=== PATIENT | male | born 1995 | race Caucasian/White ===

== ENCOUNTER 2022-03-14 18:14 | Emergency (ER) | payer OTHER ==
[2022-03-14 18:19] VITALS: TEMP 98.5
[2022-03-14] MEDS ORDERED: ONDANSETRON 4 MG/2 ML VIAL IVP STA (19:57)
[2022-03-14] MEDS ORDERED: SODIUM CHLORIDE 0.9% 1,000 ML IV STA (19:57)
--- NOTE | 2022-03-14 20:07 | ED ---
Nausea/Vomiting/Diarrhea HPI - General Chief complaint: Nausea/Vomiting/Diarrhea Stated complaint: NVD Time Seen by Provider: 03/14/22 20:00 Source: patient, family, RN notes reviewed, old records reviewed Mode of arrival: ambulatory Limitations: no limitations - History of Present Illness Initial comments: Well-appearing 26-year-old male, alert and oriented 4, presents ambulatory with complaints of nausea, vomiting, and diarrhea that started today. Patient states yesterday he felt fine. Every time he tries to eat or drink anything today he vomits. He denies any abdominal pain. He states he does have chills but no fevers. He is an insulin-dependent diabetic but mom is at bedside states that he is not compliant. She states she has been checking his sugars and home and they have been normal. He denies any sore throat, cough, difficulty breathing or chest pain. MD complaint: nausea, vomiting, diarrhea -: days(s) (1) Description of Vomiting: food contents, watery Description of Diarrhea: water (brown) Associated Abdominal Pain: No Severity scale (1-10): 0 Consistency: intermittent Worsens with: eating Associated Symptoms: fever/chills (no fever, just chills), nausea/vomiting, other (diarrhea) - Related Data Home Medications Medication Instructions Recorded Confirmed Divalproex ER [Depakote ER] 1,000 mg PO HS@199903/14/22 03/14/22 Divalproex ER [Depakote ER] 250 mg PO DAILY@0800 03/14/22 03/14/22 Insulin Glargine,Hum.rec.anlog 25 unit SQ HS@209903/14/22 03/14/22 [Lantus Solostar Pen] Insulin Lispro [humaLOG Kwikpen] See Protocol SQ AC-TID 03/14/22 03/14/22 OLANZapine 10 mg PO BID@0800,199903/14/22 03/14/22 Omeprazole 40 mg PO DAILY@0800 03/14/22 03/14/22 calcium polycarbophiL [Fibercon] 625 mg PO BID@0800,199903/14/22 03/14/22 cloNIDine HCL [Catapres] 0.2 mg PO HS@199903/14/22 03/14/22 traZODone HCL [Desyrel] 50 - 100 mg PO HS PRN 03/14/22 03/14/22 Allergies Allergy/AdvReac Type Severity Reaction Status Date / Time amoxicillin Allergy Anaphylaxis Verified 03/14/22 21:26 Penicillins Allergy Anaphylaxis Verified 03/14/22 21:26 risperidone [From Risperdal] Allergy Anaphylaxis Verified 03/14/22 21:26 Sulfa (Sulfonamide Allergy Anaphylaxis Verified 03/14/22 21:26 Antibiotics) Review of Systems ROS Statement: Those systems with pertinent positive or pertinent negative responses have been documented in the HPI. ROS Other: All systems not noted in ROS Statement are negative. Past Medical History Past Medical History: Diabetes Mellitus History of Any Multi-Drug Resistant Organisms: None Reported Past Surgical History: No Surgical Hx Reported Past Psychological History: ADD/ADHD, Bipolar Smoking Status: Vaper Past Alcohol Use History: None Reported Past Drug Use History: Marijuana General Exam Limitations: no limitations General appearance: alert, in no apparent distress Head exam: Present: atraumatic Eye exam: Present: normal appearance. Absent: scleral icterus, conjunctival injection ENT exam: Present: normal exam, normal oropharynx, mucous membranes moist Neck exam: Present: normal inspection, full ROM. Absent: tenderness, meningismus, lymphadenopathy Respiratory exam: Present: normal lung sounds bilaterally. Absent: respiratory distress, accessory muscle use Cardiovascular Exam: Present: tachycardia. Absent: JVD GI/Abdominal exam: Present: soft. Absent: distended, tenderness Extremities exam: Present: normal capillary refill. Absent: pedal edema Back exam: Present: normal inspection, full ROM, other (tattoo right shoulder). Absent: tenderness, CVA tenderness (R), CVA tenderness (L), rash noted Neurological exam: Present: alert, oriented X3, normal gait Psychiatric exam: Present: normal affect, normal mood Skin exam: Present: warm, dry, normal color. Absent: cyanosis, diaphoretic, petechiae, pallor Course Vital Signs 03/14/22 03/14/22 18:15 22:39 Temperature 98.5 F Pulse Rate 125 H 112 H Respiratory 22 18 Rate Blood Pressure 123/84 114/71 O2 Sat by Pulse 99 99 Oximetry - Reevaluation(s) Reevaluation #1: Patient states that he is feeling much better. He is tolerating oral fluids. 03/14/22 21:41 Time: 21:41 Medical Decision Making - Medical Decision Making Patient presents with 1 day of nausea, vomiting and diarrhea. He denies any hematochezia or hematemesis. Influenza and coronavirus is negative. X-ray shows a nonacute abdomen with no sign of intestinal structure pneumoperitoneum. Blood sugar was 276 patient was given a liter of normal saline. Urinalysis shows 4+ ketones and 4+ glucose. No anion gap. Patient was given 1 L normal saline with Zofran. He states he is feeling much better and is tolerating oral fluids. Abdomen is soft and nontender. Vital signs are stable. Patient has been afebrile. This is likely gastroenteritis. Case discussed with Dr. Dawson, he'll be discharged home to follow up with his primary care doctor next week and return to the emergency room with any new or concerning symptoms. Patient and family member are agreeable to this plan of care. - Lab Data Result diagrams: 03/14/22 20:39 03/14/22 20:39 Lab Results 03/14/22 03/14/22 03/14/22 Range/Units 20:39 20:39 20:39 WBC 14.0 H (3.8-10.6) k/uL RBC 6.01 H (4.30-5.90) m/uL Hgb 19.2 H* (13.0-17.5) gm/dL Hct 54.7 H (39.0-53.0) % MCV 90.9 (80.0-100.0) fL MCH 32.0 (25.0-35.0) pg MCHC 35.2 (31.0-37.0) g/dL RDW 13.2 (11.5-15.5) % Plt Count 170 (150-450) k/uL MPV 9.7 Neutrophils % (Manual) 82 % Band Neuts % (Manual) 11 % Lymphocytes % (Manual) 2 % Monocytes % (Manual) 5 % Neutrophils # (Manual) 13.00 H (1.3-7.7) k/uL Lymphocytes # (Manual) 0.28 L (1.0-4.8) k/uL Monocytes # (Manual) 0.70 (0-1.0) k/uL Nucleated RBCs 0 (0-0) /100 WBC Manual Slide Review Performed Sodium (137-145) mmol/L Potassium (3.5-5.1) mmol/L Chloride (98-107) mmol/L Carbon Dioxide (22-30) mmol/L Anion Gap mmol/L BUN (9-20) mg/dL Creatinine (0.66-1.25) mg/dL Est GFR (CKD-EPI)AfAm (>60 ml/min/1.73 sqM) Est GFR (CKD-EPI)NonAf (>60 ml/min/1.73 sqM) Glucose (74-99) mg/dL POC Glucose (mg/dL) (75-99) mg/dL POC Glu Property Accountant ID Calcium (8.4-10.2) mg/dL Total Bilirubin (0.2-1.3) mg/dL AST (17-59) U/L ALT (4-49) U/L Alkaline Phosphatase (38-126) U/L Total Protein (6.3-8.2) g/dL Albumin (3.5-5.0) g/dL Amylase (30-110) U/L Lipase (23-300) U/L Urine Color Yellow Urine Appearance Clear (Clear) Urine pH 5.5 (5.0-8.0) Ur Specific [place] 1.028 (1.001-1.035) Urine Protein Negative (Negative) Urine Glucose (UA) 4+ H (Negative) Urine Ketones 4+ H (Negative) Urine Blood Negative (Negative) Urine Nitrite Negative (Negative) Urine Bilirubin Negative (Negative) Urine Urobilinogen <2.0 (<2.0) mg/dL Ur Leukocyte Esterase Negative (Negative) Influenza Type A (PCR) Not Detected (Not Detectd) Influenza Type B (PCR) Not Detected (Not Detectd) RSV (PCR) Not Detected (Not Detectd) SARS-CoV-2 (PCR) Not Detected (Not Detectd) 03/14/22 03/14/22 Range/Units 20:39 22:39 WBC (3.8-10.6) k/uL RBC (4.30-5.90) m/uL Hgb (13.0-17.5) gm/dL Hct (39.0-53.0) % MCV (80.0-100.0) fL MCH (25.0-35.0) pg MCHC (31.0-37.0) g/dL RDW (11.5-15.5) % Plt Count (150-450) k/uL MPV Neutrophils % (Manual) % Band Neuts % (Manual) % Lymphocytes % (Manual) % Monocytes % (Manual) % Neutrophils # (Manual) (1.3-7.7) k/uL Lymphocytes # (Manual) (1.0-4.8) k/uL Monocytes # (Manual) (0-1.0) k/uL Nucleated RBCs (0-0) /100 WBC Manual Slide Review Sodium 140 (137-145) mmol/L Potassium 4.6 (3.5-5.1) mmol/L Chloride 101 (98-107) mmol/L Carbon Dioxide 26 (22-30) mmol/L Anion Gap 13 mmol/L BUN 20 (9-20) mg/dL Creatinine 0.54 L (0.66-1.25) mg/dL Est GFR (CKD-EPI)AfAm >90 (>60 ml/min/1.73 sqM) Est GFR (CKD-EPI)NonAf >90 (>60 ml/min/1.73 sqM) Glucose 276 H (74-99) mg/dL POC Glucose (mg/dL) 231 H (75-99) mg/dL POC Glu Property Accountant ID Smitha Medina Calcium 9.1 (8.4-10.2) mg/dL Total Bilirubin 1.2 (0.2-1.3) mg/dL AST 27 (17-59) U/L ALT 21 (4-49) U/L Alkaline Phosphatase 71 (38-126) U/L Total Protein 6.8 (6.3-8.2) g/dL Albumin 4.1 (3.5-5.0) g/dL Amylase 45 (30-110) U/L Lipase 28 (23-300) U/L Urine Color Urine Appearance (Clear) Urine pH (5.0-8.0) Ur Specific [place] (1.001-1.035) Urine Protein (Negative) Urine Glucose (UA) (Negative) Urine Ketones (Negative) Urine Blood (Negative) Urine Nitrite (Negative) Urine Bilirubin (Negative) Urine Urobilinogen (<2.0) mg/dL Ur Leukocyte Esterase (Negative) Influenza Type A (PCR) (Not Detectd) Influenza Type B (PCR) (Not Detectd) RSV (PCR) (Not Detectd) SARS-CoV-2 (PCR) (Not Detectd) Disposition Clinical Impression: Nausea & vomiting, Hyperglycemia Disposition: HOME SELF-CARE Condition: Good Instructions (If sedation given, give patient instructions): Acute Nausea and Vomiting (ED), Acute Diarrhea (ED) Additional Instructions: Follow-up with your primary care doctor next week. Return to emergency with any new or concerning symptoms including abdominal pain, fevers or nausea and vomiting. Is patient prescribed a controlled substance at d/c from ED?: No Referrals: Nonstaff,Physician [Primary Care Provider] - 1-2 days Time of Disposition: 21:51
[2022-03-14 20:49] LABS: Appearance,Urine Clear (Clear); Bilirubin,Urine Negative (Negative); Blood,Urine Negative (Negative); Color,Urine Yellow; Glucose,Urine (UA) 4+ (Negative); Leukocyte Esterase,Urine Negative (Negative); Nitrite,Urine Negative (Negative); PH, Urine 5.5 (5.0-8.0); Protein,Urine Negative (Negative); Specific Gravity,Urine 1.028 (1.001-1.035); Urobilinogen,Urine <2.0 mg/dL (<2.0)
[2022-03-14 20:55] LABS: Ketones,Urine 4+ (Negative)
[2022-03-14 20:59] LABS: HCT 54.7 % (39.0-53.0); MCHC 35.2 g/dL (31.0-37.0); MCV 90.9 fL (80.0-100.0); Mean Platelet Volume 9.7; Platelet Count 170 k/uL (150-450); RBC 6.01 m/uL (4.30-5.90); RDW 13.2 % (11.5-15.5)
--- NOTE | 2022-03-14 21:03 | XR ---
EXAMINATION TYPE: XR KUB DATE OF EXAM: 03/14/2022 COMPARISON: NONE HISTORY: Pain TECHNIQUE: 2 views FINDINGS: 2 views upright show no sign of intestinal obstruction or pneumoperitoneum. Fecal pattern i s normal. There is no evidence of a mass. There are no pathologic calcifications over the kidneys. Gracia ng bases are clear. IMPRESSION: Nonacute abdomen.
[2022-03-14 21:08] LABS: HGB 19.2 gm/dL (13.0-17.5)
[2022-03-14 21:09] LABS: ALT 21 U/L (4-49); AST 27 U/L (17-59); African American GFR (CKD) >90 (>60 ml/min/1.73 sqM); Albumin 4.1 g/dL (3.5-5.0); Alkaline Phosphatase 71 U/L (38-126); Amylase 45 U/L (30-110); Anion Gap 13 mmol/L; Blood Urea Nitrogen 20 mg/dL (9-20); Calcium 9.1 mg/dL (8.4-10.2); Carbon Dioxide 26 mmol/L (22-30); Chloride 101 mmol/L (98-107); Glucose 276 mg/dL (74-99); Lipase 28 U/L (23-300); Non-African American GFR(CKD) >90 (>60 ml/min/1.73 sqM); Potassium 4.6 mmol/L (3.5-5.1); Sodium 140 mmol/L (137-145); Total Bilirubin 1.2 mg/dL (0.2-1.3); Total Protein 6.8 g/dL (6.3-8.2)
[2022-03-14 21:33] LABS: Band Neutrophils % 11 %; Lymphocytes # (M) 0.28 k/uL (1.0-4.8); Neutrophils % (M) 82 %; Nucleated Red Blood Cells 0 /100 WBC (0-0); Total Cells Counted 100
[2022-03-14 22:40] VITALS: BP 114/71; PULSE 112; RESP 18
[2022-03-14 22:40] LABS: Glucose,Whole Blood 231 mg/dL (75-99)
== END 2022-03-14 22:51 | disposition home or self-care (01) ==
LOC: EEVIPCON 18:14 → EC 18:14
DX: E11.65 Type 2 diabetes mellitus with hyperglycemia (principal); F17.290 Nicotine dependence, other tobacco product, uncomplicated; Z20.822 Contact with and (suspected) exposure to COVID-19; Z88.0 Allergy status to penicillin; Z88.8 Allergy status to other drugs, medicaments and biological substances; Z88.2 Allergy status to sulfonamides; Z79.84 Long term (current) use of oral hypoglycemic drugs; Z79.4 Long term (current) use of insulin
CPT/HCPCS: 36415; 80053; 82150; 83690; 85025; 81003; 87636; 74018; 99284; 96374; 96361; J2405

== ENCOUNTER 2023-02-15 09:22 | Inpatient (IN) | payer OTHER ==
[2023-02-15] MEDS ORDERED: SODIUM CHLORIDE 0.9% 1,000 ML IV STA (09:38)
--- NOTE | 2023-02-15 09:41 | ED ---
General Adult HPI - General Chief complaint: Recheck/Abnormal Lab/Rx Stated complaint: high blood sugar Time Seen by Provider: 02/15/23 09:31 Source: patient, RN notes reviewed Mode of arrival: ambulatory Limitations: no limitations - History of Present Illness Initial comments: Patient is a pleasant 27-year-old male presenting to the emergency department with concerns for hyperglycemia. Patient states his blood sugar has been reading high since 4 AM. Patient does have increased thirst. Patient feels generally achy. Patient has not been urinating more. Patient did take 26 units of insulin without improvement of blood sugar readings. No history of similar symptoms previously. - Related Data Home Medications Medication Instructions Recorded Confirmed OLANZapine 10 mg PO DAILY 03/14/22 02/15/23 Omeprazole 40 mg PO DAILY 03/14/22 02/15/23 Budesonide/Formoterol Fumarate 2 puff INHALATION RT-BID 02/15/23 02/15/23 [Symbicort 160-4.5 Mcg Inhaler] Divalproex Sodium [Depakote] 500 mg PO TID 02/15/23 02/15/23 Divalproex [Depakote] 250 mg PO DAILY 02/15/23 02/15/23 Ibuprofen [Motrin] 600 mg PO TID PRN 02/15/23 02/15/23 Insulin Aspart [NovoLOG Flexpen] 12 units SQ AC-TID 02/15/23 02/15/23 Insulin Aspart [NovoLOG Flexpen] See Protocol SQ AC-TID 02/15/23 02/15/23 Insulin Detemir [Levemir Flexpen] 36 units SQ HS 02/15/23 02/15/23 Smyer Carbonate [Lithobid] 300 mg PO BID 02/15/23 02/15/23 calcium polycarbophiL [Fiber-Lax] 625 mg PO BID 02/15/23 02/15/23 cloNIDine HCL [Catapres] 0.1 mg PO BID 02/15/23 02/15/23 traZODone HCL 50 mg PO HS PRN 02/15/23 02/15/23 traZODone HCL 200 mg PO HS 02/15/23 02/15/23 Allergies Allergy/AdvReac Type Severity Reaction Status Date / Time amoxicillin Allergy Anaphylaxis Verified 02/15/23 11:01 Penicillins Allergy Anaphylaxis Verified 02/15/23 11:01 risperidone [From Risperdal] Allergy Anaphylaxis Verified 02/15/23 11:01 Sulfa (Sulfonamide Allergy Anaphylaxis Verified 02/15/23 11:01 Antibiotics) Review of Systems ROS Statement: Those systems with pertinent positive or pertinent negative responses have been documented in the HPI. ROS Other: All systems not noted in ROS Statement are negative. Constitutional: Denies: fever Eyes: Denies: eye pain ENT: Denies: ear pain Respiratory: Denies: cough Cardiovascular: Denies: chest pain Endocrine: Reports: fatigue, polydipsia Gastrointestinal: Denies: abdominal pain Genitourinary: Denies: dysuria Skin: Denies: rash Neurological: Denies: weakness Past Medical History Past Medical History: Diabetes Mellitus History of Any Multi-Drug Resistant Organisms: None Reported Past Surgical History: No Surgical Hx Reported Past Psychological History: ADD/ADHD, Bipolar Smoking Status: Vaper Past Alcohol Use History: None Reported Past Drug Use History: Marijuana General Exam Limitations: no limitations General appearance: alert, in no apparent distress Head exam: Present: normocephalic Eye exam: Present: normal appearance ENT exam: Present: normal oropharynx Neck exam: Present: normal inspection. Absent: meningismus Respiratory exam: Present: normal lung sounds bilaterally Cardiovascular Exam: Present: tachycardia GI/Abdominal exam: Present: soft. Absent: tenderness Extremities exam: Present: normal inspection. Absent: pedal edema, calf tenderness Neurological exam: Present: alert. Absent: motor sensory deficit Psychiatric exam: Present: normal affect, normal mood Skin exam: Present: normal color Course Vital Signs 02/15/23 09:27 Temperature 98 F Pulse Rate 151 H Respiratory 18 Rate Blood Pressure 137/108 O2 Sat by Pulse 99 Oximetry EKG Findings - EKG Results: EKG: interpreted by ERMD, sinus rhythm, normal axis, normal QRS, normal ST/T EKG shows: tachycardia Medical Decision Making - Medical Decision Making Was pt. sent in by a medical professional or institution (, PA, LEAD PROCESS ENGINEER, urgent care, hospital, or jail...) When possible be specific @ -No Did you speak to anyone other than the patient for history (EMS, parent, family, police, friend...)? What history was obtained from this source @ -No Did you review nursing and triage notes (agree or disagree)? Why? @ -I reviewed and agree with nursing and triage notes Were old charts reviewed (outside hosp., previous admission, EMS record, old EKG, old radiological studies, urgent care reports/EKG's, jail records)? Report findings @ -No old charts were reviewed Differential Diagnosis (chest pain, altered mental status, abdominal pain women, abdominal pain men, vaginal bleeding, weakness, fever, dyspnea, syncope, head ache, dizziness, GI bleed, back pain, seizure, CVA, palpatations, mental health)? @ -not applicable EKG interpreted by me (3pts min.). @ -As above X-rays interpreted by me (1pt min.). @ -None done CT interpreted by me (1pt min.). @ -None done U/S interpreted by me (1pt. min.). @ -None done What testing was considered but not performed or refused? (CT, X-rays, U/S, labs)? Why? @ -None What meds were considered but not given or refused? Why? @ -None Did you discuss the management of the patient with other professionals (professionals i.e. , PA, LEAD PROCESS ENGINEER, lab, RT, psych nurse, social worker masters, sewer connector, teacher, armored vehicle officer, case management rn)? Give summary @ -Case was discussed with Dr. Morin who will admit covering hospital call. She does recommend intensive care. Dr. Alfaro has been paged Was smoking cessation discussed for >3mins.? @ -No Was critical care preformed (if so, how long)? @ -31 minutes critical care time. Were there social determinants of health that impacted care today? How? (Homelessness, low income, unemployed, alcoholism, drug addiction, transportation, low edu. Level, literacy, decrease access to med. care, assisted, rehab)? @ -No Was there de-escalation of care discussed even if they declined (Discuss DNR or withdrawal of care, Hospice)? DNR status @ -No What co-morbidities impacted this encounter? (DM, HTN, Smoking, COPD, CAD, Cancer, CVA, ARF, Chemo, Hep., AIDS, mental health diagnosis, sleep apnea, morbid obesity)? @ -Diabetes Was patient admitted / discharged? Hospital course, mention meds given and route, prescriptions, significant lab abnormalities, going to OR and other pertinent info. @ -Patient reevaluated. DKA protocol started. Patient will be admitted to ICU. Undiagnosed new problem with uncertain prognosis? @ -No Drug Therapy requiring intensive monitoring for toxicity (Heparin, Nitro, Insulin, Cardizem)? @ -Patient will need monitoring of insulin drip Were any procedures done? @ -No Diagnosis/symptom? @ -Diabetic ketoacidosis Acute, or Chronic, or Acute on Chronic? @ -Acute Uncomplicated (without systemic symptoms) or Complicated (systemic symptoms)? @ -default Side effects of treatment? @ -No Exacerbation, Progression, or Severe Exacerbation? @ -No Poses a threat to life or bodily function? How? (Chest pain, [place], [place], pneumonia, PE, COPD, DKA, ARF, appy, cholecystitis, CVA, Diverticulitis, Homicidal, Suicidal, threat to staff... and all critical care pts) @ -No - Lab Data Result diagrams: 02/15/23 09:58 02/15/23 09:58 Lab Results 02/15/23 02/15/23 Range/Units 09:58 09:58 WBC 15.5 H (3.8-10.6) k/uL RBC 5.21 (4.30-5.90) m/uL Hgb 16.4 (13.0-17.5) gm/dL Hct 50.0 (39.0-53.0) % MCV 95.9 (80.0-100.0) fL MCH 31.4 (25.0-35.0) pg MCHC 32.8 (31.0-37.0) g/dL RDW 12.6 (11.5-15.5) % Plt Count 181 (150-450) k/uL MPV 8.7 Neutrophils % 84 % Lymphocytes % 9 % Monocytes % 6 % Eosinophils % 1 % Basophils % 0 % Neutrophils # 13.0 H (1.3-7.7) k/uL Lymphocytes # 1.4 (1.0-4.8) k/uL Monocytes # 0.9 (0-1.0) k/uL Eosinophils # 0.1 (0-0.7) k/uL Basophils # 0.0 (0-0.2) k/uL Sodium 136 L (137-145) mmol/L Potassium 5.2 H (3.5-5.1) mmol/L Chloride 95 L (98-107) mmol/L Carbon Dioxide 9 L* (22-30) mmol/L Anion Gap 32 mmol/L BUN 10 (9-20) mg/dL Creatinine 0.76 (0.66-1.25) mg/dL Est GFR (CKD-EPI)AfAm >90 (>60 ml/min/1.73 sqM) Est GFR (CKD-EPI)NonAf >90 (>60 ml/min/1.73 sqM) Glucose (74-99) mg/dL Calcium 9.8 (8.4-10.2) mg/dL Magnesium 1.8 (1.6-2.3) mg/dL Total Bilirubin 1.5 H (0.2-1.3) mg/dL AST 22 (17-59) U/L ALT 22 (4-49) U/L Alkaline Phosphatase 110 (38-126) U/L Total Protein 8.0 (6.3-8.2) g/dL Albumin 5.1 H (3.5-5.0) g/dL Acetone, Qual Positive (Negative) Critical Care Time Critical Care Time: Yes Total Critical Care Time: 31 Disposition Clinical Impression: Diabetic ketoacidosis Disposition: ADMITTED IP TO THIS [facility] Condition: Serious Is patient prescribed a controlled substance at d/c from ED?: No Referrals: None,Stated [Primary Care Provider] - 1-2 days Time of Disposition: 11:36
[2023-02-15 10:15] LABS: Basophils % (A) 0 %; Eosinophils # (A) 0.1 k/uL (0-0.7); Eosinophils % (A) 1 %; HGB 16.4 gm/dL (13.0-17.5); Lymphocytes # (A) 1.4 k/uL (1.0-4.8); Lymphocytes % (A) 9 %; MCH 31.4 pg (25.0-35.0); MCHC 32.8 g/dL (31.0-37.0); MCV 95.9 fL (80.0-100.0); Mean Platelet Volume 8.7; Monocytes # (A) 0.9 k/uL (0-1.0); Monocytes % (A) 6 %; Neutrophils % (A) 84 %; Platelet Count 181 k/uL (150-450); RBC 5.21 m/uL (4.30-5.90); RDW 12.6 % (11.5-15.5); WBC 15.5 k/uL (3.8-10.6)
[2023-02-15 10:26] LABS: ALT 22 U/L (4-49); AST 22 U/L (17-59); African American GFR (CKD) >90 (>60 ml/min/1.73 sqM); Albumin 5.1 g/dL (3.5-5.0); Alkaline Phosphatase 110 U/L (38-126); Anion Gap 32 mmol/L; Blood Urea Nitrogen 10 mg/dL (9-20); Calcium 9.8 mg/dL (8.4-10.2); Chloride 95 mmol/L (98-107); Magnesium 1.8 mg/dL (1.6-2.3); Non-African American GFR(CKD) >90 (>60 ml/min/1.73 sqM); Potassium 5.2 mmol/L (3.5-5.1); Sodium 136 mmol/L (137-145); Total Bilirubin 1.5 mg/dL (0.2-1.3)
--- NOTE | 2023-02-15 10:31 | XR ---
EXAMINATION TYPE: XR chest 2V DATE OF EXAM: 02/15/2023 COMPARISON: None INDICATION: Weakness elevated blood sugar shakes TECHNIQUE: Frontal and lateral views of the chest are obtained. FINDINGS: The heart size is normal. The pulmonary vasculature is normal. The lungs are clear. IMPRESSION: 1. No acute pulmonary process.
[2023-02-15 10:34] LABS: Carbon Dioxide 9 mmol/L (22-30)
[2023-02-15 11:33] LABS: Appearance,Urine Clear (Clear); Bilirubin,Urine Negative (Negative); Blood,Urine Negative (Negative); Color,Urine Light Yellow; Glucose,Urine (UA) 4+ (Negative); Leukocyte Esterase,Urine Negative (Negative); Nitrite,Urine Negative (Negative); Protein,Urine Negative (Negative); Specific Gravity,Urine 1.019 (1.001-1.035); Urobilinogen,Urine <2.0 mg/dL (<2.0)
[2023-02-15] MEDS ORDERED: INSULIN REGULAR BOLUS (FROM DRIP BAG) IV ONE (11:33)
[2023-02-15] MEDS ORDERED: SODIUM CHLORIDE 0.9% 1,000 ML IV ONE (11:33)
[2023-02-15] MEDS ORDERED: SODIUM CHLORIDE 0.9% 1,000 ML IV SCH (11:45)
[2023-02-15 11:59] LABS: Ketones,Urine 4+ (Negative)
[2023-02-15] MEDS ORDERED: INSULIN REGULAR 100 UNIT in SODIUM CHLORIDE 0.9% 100 ML IV SCH (12:00)
[2023-02-15 12:07] LABS: Glucose,Whole Blood 547 mg/dL (70-110)
[2023-02-15] MEDS ORDERED: NICOTINE GUM (POLACRILEX) 2 MG GUM BUCCAL PRN (12:22)
[2023-02-15] MEDS: LORazepam 2 MG/ML INJ IV PRN ×2 (12:35→21:19)
[2023-02-15] MEDS: ONDANSETRON 4 MG/2 ML VIAL IVP PRN ×2 (12:35→21:06)
[2023-02-15 13:36] LABS: Glucose,Whole Blood 354 mg/dL (70-110)
[2023-02-15] MEDS ORDERED: MELATONIN 3 MG TABLET PO PRN (13:57)
[2023-02-15] MEDS ORDERED: KETOROLAC 15 MG/ML 1 ML VIAL IVP PRN (13:57)
[2023-02-15] MEDS ORDERED: NALOXONE 0.4 MG/ML 1 ML VIAL IV PRN (13:57)
[2023-02-15] MEDS ORDERED: ACETAMINOPHEN TAB 325 MG TAB PO PRN (13:57)
[2023-02-15 14:00] LABS: Glucose 585 mg/dL (74-99)
[2023-02-15 14:01] LABS: Glucose 634 mg/dL (74-99)
[2023-02-15 14:02] LABS: African American GFR (CKD) >90 (>60 ml/min/1.73 sqM); Blood Urea Nitrogen 11 mg/dL (9-20); Chloride 96 mmol/L (98-107); Non-African American GFR(CKD) >90 (>60 ml/min/1.73 sqM); Phosphorus 6.2 mg/dL (2.5-4.5); Potassium 5.1 mmol/L (3.5-5.1); Sodium 137 mmol/L (137-145)
[2023-02-15 14:03] LABS: Carbon Dioxide <5 mmol/L (22-30)
--- NOTE | 2023-02-15 14:17 | P.HPIM ---
History of Present Illness H&P Date: 02/15/23 Patient is a 27 yo male with DM 1 diagnosed as a small child, ADD, and bipolar disorder who came to the emergency department after having high blood sugars this morning. In the ER he underwent an extensive evaluation. He was found have severe DKA. He was started on IV fluids and insulin drip. Patient seen and examined at bedside. He reports this morning he felt awful and checked his sugars and they were greater then 500. He was having some nausea and vomiting. He felt shaky and weak, he was having difficulty concentrating, and felt very fatigued. Currently he feels short of breath and is having a headache. He denies lgiht headedness, dizziness, blurry vision, and chest pain. His vomiting is better and he is feeling very thirsty. He reports that he purposely did not take his insulin last night to hurt himself. He reports that he is having difficulty with his girlfriend and having talked to another female. He reports that he recently moved out of his adult f bernice retirement. He has a grandmother which is his guardian. He recounts that his girlfriend is very important to him and he has very resentful that he hurt her. He states that he has suicidal ideations on a daily basis and that isn't new for him. He does report he was trying to harm himself, but not kill himself by not taking his insulin. I had the opportunity to speak with his guardian Ms. Simental. She recalls that he has been out of his adult foster retirement and on his own for the last 1 week. She states he has always had difficulty getting along with people in his group homes. She does report that he has a significant mental health history. He was having suicidal ideations and talking about harming himself approximately 2 months ago and did require inpatient psychiatric admission at that time. She recounts that he just admitted to her he didn't take his insulin on purpose to harm himself, she does believe this may be suicidal ideations. She thinks having him see psychiatry would be a good idea. She was just getting him set up with community mental health services. Vital signs reviewed General: Ill-appearing, moderate distress, appears at stated age Derm: warm, dry Eyes: EOMI, no lid lag, anicteric sclera, pupils equal round reactive to light ENT: Nose and ears atraumatic, no thrush, no pharyngeal erythema Cardiovascular: S1 and S2 tachycardic no murmur, positive posterior tibial pulse bilateral, no edema, capillary refill less than 2 seconds Lungs: clear to auscultation bilateral, no rhonchi, no rales, no wheeze, + sternal retractions, + tachypnea Abdominal: soft, nontender to palpation, no guarding, no appreciable organomegaly, normal bowel sounds Ext: no gross muscle atrophy, moving all 4 extremities independently, no contractures Neuro: CN II-XII grossly intact, no focal neuro deficits Psych: Alert, oriented, appears anxious Assessment: Diabetic ketoacidosis in a type 1 diabetic Hyperkalemia Pseudohyponatremia secondary to hyperglycemia Nicotine dependency Suicidal ideation Bipolar disorder ADHD Imaging: Chest x-ray as reviewed by myself reveals no acute process Data Review: Laboratory analysis was remarkable for white blood cell count 15.5, sodium 136, potassium 5.2, chloride 95, carbon dioxide 19, anion gap 32, sugar greater than 588, bilirubin 1.5, albumin 5.1, acetone in the urine was positive, urinalysis s howed 4+ glucose and 4+ ketones. Plan: -Insulin bolus at 0.1 units per kilogram per hour and then start drip at 0.1 units per kilogram per hour, BMP/mag/every 4 hours until gap is closed 2 -Consult psych, suicide precautions, -Check lithium level and Depakote level -Resume Depakote 500 mg 3 times daily and 250 mg once daily, lithium 300 mg twice daily, Zyprexa 10 mg daily, and trazodone 200 mg at night -Resume omeprazole -Hold oral Motrin and use IV Toradol for headache -Check hemoglobin A1c - check stat VBG - nicotine replacement -I spoke with his legal guardian as an independent historian. The patient is admitted with an anticipated greater than 2 midnight stay for evaluation of DKA. Surrogate decision-maker: Ms. Simental (guardian) CODE STATUS:Full DVT prophylaxis: Lovenox Anticipated discharge date: Pending Clincial Course Anticipated discharge place: Pending Clincial Course A total of 45 minutes of ciritical care time was spent on this complex patient. This dictation was prepared using dragon medical voice recognition software. Though every attempt is made to correct errors during during dictation some may still exist. Past Medical History Past Medical History: Diabetes Mellitus History of Any Multi-Drug Resistant Organisms: None Reported Past Surgical History: No Surgical Hx Reported Past Psychological History: ADD/ADHD, Bipolar Smoking Status: Vaper Past Alcohol Use History: None Reported Past Drug Use History: Marijuana Medications and Allergies Home Medications Medication Instructions Recorded Confirmed Type OLANZapine 10 mg PO DAILY 03/14/22 02/15/23 History Omeprazole 40 mg PO DAILY 03/14/22 02/15/23 History Budesonide/Formoterol Fumarate 2 puff INHALATION RT-BID 02/15/23 02/15/23 History [Symbicort 160-4.5 Mcg Inhaler] Divalproex Sodium [Depakote] 500 mg PO TID 02/15/23 02/15/23 History Divalproex [Depakote] 250 mg PO DAILY 02/15/23 02/15/23 History Ibuprofen [Motrin] 600 mg PO TID PRN 02/15/23 02/15/23 History Insulin Aspart [NovoLOG Flexpen] 12 units SQ AC-TID 02/15/23 02/15/23 History Insulin Aspart [NovoLOG Flexpen] See Protocol SQ AC-TID 02/15/23 02/15/23 History Insulin Detemir [Levemir Flexpen] 36 units SQ HS 02/15/23 02/15/23 History [place] Carbonate [Lithobid] 300 mg PO BID 02/15/23 02/15/23 History calcium polycarbophiL [Fiber-Lax] 625 mg PO BID 02/15/23 02/15/23 History cloNIDine HCL [Catapres] 0.1 mg PO BID 02/15/23 02/15/23 History traZODone HCL 50 mg PO HS PRN 02/15/23 02/15/23 History traZODone HCL 200 mg PO HS 02/15/23 02/15/23 History Allergies Allergy/AdvReac Type Severity Reaction Status Date / Time amoxicillin Allergy Anaphylaxis Verified 02/15/23 11:01 Penicillins Allergy Anaphylaxis Verified 02/15/23 11:01 risperidone [From Risperdal] Allergy Anaphylaxis Verified 02/15/23 11:01 Sulfa (Sulfonamide Allergy Anaphylaxis Verified 02/15/23 11:01 Antibiotics) Physical Exam Osteopathic Statement: *. No significant issues noted on an osteopathic structural exam other than those noted in the History and Physical/Consult. Vitals: Vital Signs Temp Pulse Resp BP Pulse Ox 02/15/23 13:08 98.1 F 147 H 24 147/88 97 02/15/23 09:27 98 F 151 H 18 137/108 99 Intake and Output 02/14/23 02/15/23 02/15/23 22:59 06:59 14:59 Intake Total 8.934 Output Total 1250 Balance -1241.066 Intake: Intake, IV Titration 8.934 Amount Insulin Regular 100 unit 8.934 In Sodium Chloride 0.9% 100 ml @ 0.1 UNITS/KG/HR 6.872 mls/hr IV .[id number] [facility] Rx#:[id number] Output: Urine 1250 Other: Weight 68.039 kg Results CBC & Chem 7: 02/15/23 09:58 02/15/23 12:22 Labs: Abnormal Lab Results - Last 24 Hours (Table) 02/15/23 02/15/23 02/15/23 Range/Units 09:58 09:58 09:58 WBC 15.5 H (3.8-10.6) k/uL Neutrophils # 13.0 H (1.3-7.7) k/uL Sodium 136 L (137-145) mmol/L Potassium 5.2 H (3.5-5.1) mmol/L Chloride 95 L (98-107) mmol/L Carbon Dioxide 9 L* (22-30) mmol/L Glucose 585 H* (74-99) mg/dL POC Glucose (mg/dL) (70-110) mg/dL Phosphorus (2.5-4.5) mg/dL Total Bilirubin 1.5 H (0.2-1.3) mg/dL Albumin 5.1 H (3.5-5.0) g/dL Urine Glucose (UA) 4+ H (Negative) Urine Ketones 4+ H (Negative) 02/15/23 02/15/23 02/15/23 Range/Units 12:01 12:22 13:31 WBC (3.8-10.6) k/uL Neutrophils # (1.3-7.7) k/uL Sodium (137-145) mmol/L Potassium (3.5-5.1) mmol/L Chloride 96 L (98-107) mmol/L Carbon Dioxide <5 L* (22-30) mmol/L Glucose 634 H* (74-99) mg/dL POC Glucose (mg/dL) 547 H 354 H (70-110) mg/dL Phosphorus 6.2 H (2.5-4.5) mg/dL Total Bilirubin (0.2-1.3) mg/dL Albumin (3.5-5.0) g/dL Urine Glucose (UA) (Negative) Urine Ketones (Negative)
[2023-02-15 14:23] LABS: Lithium 0.3 mmol/L
[2023-02-15 14:24] LABS: Glucose,Whole Blood 283 mg/dL (70-110)
[2023-02-15 14:30] LABS: Valproic Acid (Depakene) 19.6 ug/mL
[2023-02-15 14:36] LABS: VBG PH 7.2 (7.31-7.41)
[2023-02-15] MEDS: D5-0.45% NACL WITH KCL 20MEQ/L 1,000 ML IV SCH ×3 (14:40→21:10)
[2023-02-15 15:30] LABS: Glucose,Whole Blood 222 mg/dL (70-110)
[2023-02-15 16:23] LABS: Potassium 4.3 mmol/L (3.5-5.1)
[2023-02-15 16:24] LABS: African American GFR (CKD) >90 (>60 ml/min/1.73 sqM); Anion Gap 20 mmol/L; Blood Urea Nitrogen 10 mg/dL (9-20); Carbon Dioxide 15 mmol/L (22-30); Chloride 106 mmol/L (98-107); Glucose 204 mg/dL (74-99); Non-African American GFR(CKD) >90 (>60 ml/min/1.73 sqM); Phosphorus 3.2 mg/dL (2.5-4.5); Sodium 141 mmol/L (137-145)
[2023-02-15 16:31] LABS: Glucose,Whole Blood 178 mg/dL (70-110)
[2023-02-15 17:35] LABS: Glucose,Whole Blood 156 mg/dL (70-110)
[2023-02-15] MEDS: DIVALPROEX 500 MG TABLET.DR PO SCH ×2 (17:59→21:19)
[2023-02-15] MEDS: PANTOPRAZOLE 40 MG TABLET PO SCH (17:59)
[2023-02-15 18:33] LABS: Glucose,Whole Blood 122 mg/dL (70-110)
[2023-02-15 19:34] LABS: Glucose,Whole Blood 112 mg/dL (70-110)
[2023-02-15] MEDS ORDERED: SYMBICORT 160-4.5 MCG INHALER INHALATION SCH (20:00)
[2023-02-15 20:35] LABS: Glucose,Whole Blood 132 mg/dL (70-110)
[2023-02-15] MEDS: traZODone HCL 100 MG TAB PO SCH (20:36)
[2023-02-15] MEDS: cloNIDine HCL 0.1 MG TAB PO SCH (20:36)
[2023-02-15] MEDS: LITHIUM CARBONATE 300 MG CAP PO SCH (20:43)
[2023-02-15 21:07] LABS: African American GFR (CKD) >90 (>60 ml/min/1.73 sqM); Anion Gap 10 mmol/L; Blood Urea Nitrogen 7 mg/dL (9-20); Calcium 8.4 mg/dL (8.4-10.2); Carbon Dioxide 21 mmol/L (22-30); Chloride 106 mmol/L (98-107); Glucose 137 mg/dL (74-99); Non-African American GFR(CKD) >90 (>60 ml/min/1.73 sqM); Potassium 4.1 mmol/L (3.5-5.1); Sodium 137 mmol/L (137-145)
[2023-02-15 21:49] LABS: Glucose,Whole Blood 146 mg/dL (70-110)
[2023-02-15 22:27] LABS: Glucose,Whole Blood 198 mg/dL (70-110)
[2023-02-15 23:44] LABS: Glucose,Whole Blood 243 mg/dL (70-110)
[2023-02-15] MEDS ORDERED: INSULIN DETEMIR (LEVEMIR) 100 UNIT/ML SYR SQ SCH (23:45)
[2023-02-15] MEDS ORDERED: INSULIN NPH 100 UNIT/ML 10 ML VIAL SQ ONE (23:49)
--- NOTE | 2023-02-15 23:51 | P.CNPUL ---
History of Present Illness Consult date: 02/15/23 Requesting physician: Rehan Pereyra Reason for consult: other (ICU management) Chief complaint: Nausea, vomiting, weakness History of present illness: I'm seeing this patient in new consultation today 02/15/2023 for ICU management. Patient is currently resting comfortably in ER room 1. Patient's medical history is positive for diabetes mellitus type 1, ADD, bipolar disorder. Patient apparently has been experiencing nausea, vomiting, weakness, shaking for approximately one day. Patient has not been taking his insulin for the last day, because his girlfriend was talking to someone else. He has an extensive psychiatric history, and is on many antipsychotic medications. He has had previous episodes of suicidal ideation requiring a psychiatric admission. He does have a legal guardian. He currently denies any current suicidal ideation. Patient's blood sugars on arrival were greater than 500, urine positive for ketones. Currently, patient's blood sugar is better controlled on insulin infusion per protocol and D5W/Saline 0.45% with 20 meqs of K infusing at 150 mL per hour. Patient's anion gap has closed, and is down to 10. Patient's serum CO2 is up to 21. Patient's most recent BMP from today shows a sodium 137, potassium 4.1, chloride 106, BUN 7, creatinine 0.53, glucose 137. Patient's CBC shows a WBC count of 15.5, hemoglobin 16.4, hematocrit 50, platelets 181,000. Patient is quite lethargic after receiving a when necessary dose of Ativan for anxiety and shaking. He is in no acute distress. His vomiting has subsided but remains nauseous, and is receiving when necessary Zofran. Patient denies any abdominal pain, diarrhea, constipation. Chest x-ray on arrival showed no acute cardiopulmonary process. Patient denies shortness of breath, cough, fever, chest pain. No kussmaul respirations noted. Patient is receiving Lovenox for DVT prophylaxis and Protonix for GI prophylaxis. Vital signs are stable. Review of Systems REVIEW OF SYSTEMS: CONSTITUTIONAL: Denies any recent significant weight loss or weight gain. EYES: Denies change in vision. EARS, NOSE, MOUTH, THROAT: Denies headaches, denies sore throat. CARDIOVASCULAR: Denies chest pain, palpitations or syncopal episodes. RESPIRATORY: Denies shortness of breath, cough, congestion or hemoptysis. GASTROINTESTINAL: See HPI GENITOURINARY: Denies hematuria, denies infections. MUSKULOSKELETAL: Denies pain, denies swelling. INTEGUMENTARY: Denies rash, denies eczema. NEUROLOGICAL: Denies recent memory loss, no recent seizure activity. PSYCHIATRIC: Denies anxiety or current suicidal ideation; admits depression HEMATOLOGIC/LYMPHATIC: Denies anemia, denies enlarged lymph node Past Medical History Past Medical History: Diabetes Mellitus History of Any Multi-Drug Resistant Organisms: None Reported Past Surgical History: No Surgical Hx Reported Past Psychological History: ADD/ADHD, Anxiety, Bipolar Smoking Status: Vaper Past Alcohol Use History: None Reported Past Drug Use History: Marijuana Medications and Allergies Home Medications Medication Instructions Recorded Confirmed Type OLANZapine 10 mg PO DAILY 03/14/22 02/15/23 History Omeprazole 40 mg PO DAILY 03/14/22 02/15/23 History Budesonide/Formoterol Fumarate 2 puff INHALATION RT-BID 02/15/23 02/15/23 History [Symbicort 160-4.5 Mcg Inhaler] Divalproex Sodium [Depakote] 500 mg PO TID 02/15/23 02/15/23 History Divalproex [Depakote] 250 mg PO DAILY 02/15/23 02/15/23 History Ibuprofen [Motrin] 600 mg PO TID PRN 02/15/23 02/15/23 History Insulin Aspart [NovoLOG Flexpen] 12 units SQ AC-TID 02/15/23 02/15/23 History Insulin Aspart [NovoLOG Flexpen] See Protocol SQ AC-TID 02/15/23 02/15/23 History Insulin Detemir [Levemir Flexpen] 36 units SQ HS 02/15/23 02/15/23 History [place] Carbonate [Lithobid] 300 mg PO BID 02/15/23 02/15/23 History calcium polycarbophiL [Fiber-Lax] 625 mg PO BID 02/15/23 02/15/23 History cloNIDine HCL [Catapres] 0.1 mg PO BID 02/15/23 02/15/23 History traZODone HCL 50 mg PO HS PRN 02/15/23 02/15/23 History traZODone HCL 200 mg PO HS 02/15/23 02/15/23 History Allergies Allergy/AdvReac Type Severity Reaction Status Date / Time amoxicillin Allergy Anaphylaxis Verified 02/15/23 11:01 Penicillins Allergy Anaphylaxis Verified 02/15/23 11:01 risperidone [From Risperdal] Allergy Anaphylaxis Verified 02/15/23 11:01 Sulfa (Sulfonamide Allergy Anaphylaxis Verified 02/15/23 11:01 Antibiotics) Physical Exam Vitals: Vital Signs Temp Pulse Resp BP Pulse Ox 02/15/23 22:30 118 H 16 106/63 94 L 02/15/23 21:46 113 H 17 109/68 93 L 02/15/23 21:22 118 H 16 124/87 95 02/15/23 20:41 97.9 F 113 H 18 122/91 95 02/15/23 14:30 137 H 16 139/96 98 02/15/23 14:00 140 H 24 136/84 98 02/15/23 13:30 146 H 26 H 147/88 98 02/15/23 13:08 98.1 F 147 H 24 147/88 97 02/15/23 13:00 149 H 30 H 152/93 98 02/15/23 11:30 147 H 30 H 147/112 98 02/15/23 11:00 161 H 30 H 145/100 98 02/15/23 10:30 142 H 30 H 142/88 98 02/15/23 09:27 98 F 151 H 18 137/108 99 Intake and Output 02/15/23 02/15/23 02/16/23 14:59 22:59 06:59 Intake Total 8.934 19.232 Output Total 1250 600 Balance -1241.066 -580.768 Intake: Intake, IV Titration 8.934 19.232 Amount Insulin Regular 100 unit 8.934 19.232 In Sodium Chloride 0.9% 100 ml @ 0.1 UNITS/KG/HR 6.872 mls/hr IV .[id number] [facility] Rx#:[id number] Output: Urine 1250 600 Other: Weight 68.039 kg GENERAL EXAM: Lethargic but arousable, 27-year-old male, comfortable in no apparent distress. HEAD: Normocephalic and atraumatic EYES: Normal reaction of pupils, equal size. NOSE: Clear with pink turbinates. THROAT: No erythema or exudates. NECK: No masses, no JVD. CHEST: No chest wall deformity. LUNGS: Equal air entry with no crackles, wheeze, rhonchi or dullness. On room air. No conversational dyspnea or accessory muscle use.. CVS: S1 and S2 normal with no audible murmur, regular rhythm. No extra heart sounds. Heart rate currently 110 bpm. ABDOMEN: No hepatosplenomegaly, active bowel sounds, no guarding or rigidity. SPINE: No scoliosis or deformity SKIN: No rashes CENTRAL NERVOUS SYSTEM: No focal deficits, tone is normal in all 4 extremities. EXTREMITIES: There is no peripheral edema, clubbing, or cyanosis. Peripheral pulses are intact. Results - Laboratory Findings CBC and BMP: 02/15/23 09:58 02/15/23 20:30 Abnormal lab findings: Abnormal Labs 02/15/23 02/15/23 02/15/23 09:58 09:58 09:58 WBC 15.5 H Neutrophils # 13.0 H VBG pH VBG pCO2 VBG HCO3 Sodium 136 L Potassium 5.2 H Chloride 95 L Carbon Dioxide 9 L* BUN Creatinine Glucose 585 H* POC Glucose (mg/dL) Phosphorus Total Bilirubin 1.5 H Albumin 5.1 H Urine Glucose (UA) 4+ H Urine Ketones 4+ H 02/15/23 02/15/23 02/15/23 12:01 12:22 13:31 WBC Neutrophils # VBG pH VBG pCO2 VBG HCO3 Sodium Potassium Chloride 96 L Carbon Dioxide <5 L* BUN Creatinine Glucose 634 H* POC Glucose (mg/dL) 547 H 354 H Phosphorus 6.2 H Total Bilirubin Albumin Urine Glucose (UA) Urine Ketones 02/15/23 02/15/23 02/15/23 14:22 14:23 15:28 WBC Neutrophils # VBG pH 7.20 L* VBG pCO2 26 L VBG HCO3 10 L Sodium Potassium Chloride Carbon Dioxide BUN Creatinine Glucose POC Glucose (mg/dL) 283 H 222 H Phosphorus Total Bilirubin Albumin Urine Glucose (UA) Urine Ketones 02/15/23 02/15/23 02/15/23 16:00 16:26 17:30 WBC Neutrophils # VBG pH VBG pCO2 VBG HCO3 Sodium Potassium Chloride Carbon Dioxide 15 L BUN Creatinine 0.64 L Glucose 204 H POC Glucose (mg/dL) 178 H 156 H Phosphorus Total Bilirubin Albumin Urine Glucose (UA) Urine Ketones 02/15/23 02/15/23 02/15/23 18:30 19:32 20:30 WBC Neutrophils # VBG pH VBG pCO2 VBG HCO3 Sodium Potassium Chloride Carbon Dioxide 21 L BUN 7 L Creatinine 0.53 L Glucose 137 H POC Glucose (mg/dL) 122 H 112 H Phosphorus Total Bilirubin Albumin Urine Glucose (UA) Urine Ketones 02/15/23 02/15/23 02/15/23 20:31 21:42 22:26 WBC Neutrophils # VBG pH VBG pCO2 VBG HCO3 Sodium Potassium Chloride Carbon Dioxide BUN Creatinine Glucose POC Glucose (mg/dL) 132 H 146 H 198 H Phosphorus Total Bilirubin Albumin Urine Glucose (UA) Urine Ketones - Diagnostic Findings Chest x-ray: image reviewed Assessment and Plan Assessment: Diabetic ketoacidosis exacerbated by patient being noncompliant with his home insulin. This is currently resolved with a most recent anion gap of 10, serum CO2 of 21, and blood glucose of 137 mg/dL. Patient continues to receive IV insulin per protocol. Major depressive disorder. Patient stopped taking his insulin reportedly because his girlfriend was talking to someone else. Patient denies any current suicidal ideation. Patient has history of self-harm behaviors approximately 2 months ago requiring psychiatric admission. Patient is on multiple antipsychotic medications. History of Bipolar disorder Current smoker, using a vap pen Plan: Patient's medications, labs, chest x-ray reviewed Patient can be transitioned to subcu insulin per DKA order set Patient is hemodynamically stable and may be downgraded When necessary Zofran as needed Increase oral intake as tolerated Antipsychotic medication per psychiatry Logan and Depakote levels are pending Suicide precautions until cleared by psychiatry Smoking cessation encouraged Lovenox for DVT prophylaxis Protonix for GI prophylaxis I have personally seen and examined the patient, performed the documentation and the assessment and plan as written. Number of minutes spent on the visit:20 Time with Patient: Greater than 30
[2023-02-16 00:51] LABS: Glucose,Whole Blood 298 mg/dL (70-110)
[2023-02-16 01:36] LABS: Glucose,Whole Blood 300 mg/dL (70-110)
[2023-02-16] MEDS: INSULIN ASPART (NovoLOG) 100 UNIT/ML VIAL SQ SCH ×8 (01:36→20:53)
[2023-02-16] MEDS: PANTOPRAZOLE 40 MG TABLET PO SCH (06:00)
[2023-02-16 06:19] LABS: Glucose,Whole Blood 205 mg/dL (70-110)
[2023-02-16] MEDS: cloNIDine HCL 0.1 MG TAB PO SCH ×2 (08:29→22:35)
[2023-02-16] MEDS: ENOXAPARIN 40 MG/0.4 ML SYRINGE SQ SCH (08:29)
[2023-02-16] MEDS: DIVALPROEX 500 MG TABLET.DR PO SCH (08:29)
[2023-02-16] MEDS: LITHIUM CARBONATE 300 MG CAP PO SCH ×2 (08:30→22:31)
[2023-02-16] MEDS ORDERED: DIVALPROEX 250 MG TABLET.DR PO SCH (09:00)
[2023-02-16] MEDS ORDERED: OLANZapine 10 MG TAB PO SCH (09:00)
[2023-02-16 09:15] LABS: HCT 42.1 % (39.0-53.0); HGB 14.6 gm/dL (13.0-17.5); MCH 31.2 pg (25.0-35.0); MCHC 34.8 g/dL (31.0-37.0); Mean Platelet Volume 8.9; Platelet Count 181 k/uL (150-450); RBC 4.68 m/uL (4.30-5.90); RDW 13.1 % (11.5-15.5); WBC 13.2 k/uL (3.8-10.6)
[2023-02-16 09:16] LABS: MCV 89.8 fL (80.0-100.0)
[2023-02-16 09:21] LABS: ALT 18 U/L (4-49); AST 20 U/L (17-59); African American GFR (CKD) >90 (>60 ml/min/1.73 sqM); Albumin 3.6 g/dL (3.5-5.0); Alkaline Phosphatase 59 U/L (38-126); Anion Gap 10 mmol/L; Blood Urea Nitrogen 6 mg/dL (9-20); Calcium 8.9 mg/dL (8.4-10.2); Carbon Dioxide 24 mmol/L (22-30); Chloride 105 mmol/L (98-107); Glucose 127 mg/dL (74-99); Magnesium 1.6 mg/dL (1.6-2.3); Non-African American GFR(CKD) >90 (>60 ml/min/1.73 sqM); Phosphorus 2.7 mg/dL (2.5-4.5); Potassium 3.5 mmol/L (3.5-5.1); Sodium 139 mmol/L (137-145); Total Bilirubin 0.7 mg/dL (0.2-1.3); Total Protein 6.1 g/dL (6.3-8.2)
[2023-02-16 11:57] LABS: Glucose,Whole Blood 231 mg/dL (70-110)
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
[2023-02-16 14:34] VITALS: BMI 24.2
--- NOTE | 2023-02-16 15:31 | P.PN ---
Subjective Progress Note Date: 02/16/23 Patient is a 27 yo male with DM 1 diagnosed as a small child, ADD, and bipolar disorder who came to the emergency department after having high blood sugars this morning. In the ER he underwent an extensive evaluation. He was found have severe DKA. He was started on IV fluids and insulin drip. His labs were followed serially. He did well. He was able to come off the insulin drip on the evening of 02/15/23. Patient seen and examined at bedside. He is doing better today. His nausea and vomiting are resolved. He is feeling hungry. He denies any chest pain, shortness of breath, lightheadedness. He continues to have a headache which is normal for him. Vital signs reviewed General: nontoxic, no distress, appears at stated age Cardiovascular: S1S2 reg, no murmur, positive posterior tibial pulse bilateral, Lungs: CTA bilateral, no rhonchi, no rales , no accessory muscle use Abdominal: soft, nontender to palpation, no guarding, no appreciable organomegaly Ext: no gross muscle atrophy, no edema, no contractures Neuro: CN II-XI grossly intact, no focal neuro deficits Psych: Alert, oriented, appropriate affect Assessment: DM 1 with resolved DKA - A1C 8.6 Nicotine dependency Suicidal ideation Bipolar disorder ADHD Resolved: Metabolic acidosis Hyperkalemia Pseudohyponatremia secondary to hyperglycemia Imaging: none reviewed Data Review: Laboratory analysis reviewed. White blood cell count 13.2, BUN 6, creatinine 0.46, glucose 127, hemoglobin A1c 8.6 -Blood sugars reviewed and fasting blood sugar was 127, p.m. blood sugars were 298 and 300. Plan: - Increase novology to 10 units TID, Increase Levemir ot 25 units at night - follow AM blood suagrs - case discussed with Dr. Marr and patient has agreed to voluntary psych admission, likel will be discharged there tomorrow if sugars are well controlled. He no longer requires a sitter. He will optimize the patient's mental health medications. - continue with nicotine gum , stop IV fluids -We will repeat CBC in a.m. to ensure that white blood cell count continues to decrease. No need to repeat basic metabolic profile. -Patient has no gross proteinuria. He will need close follow-up with the PCP on discharge and should have a microalbumin obtained to see if the patient would benefit from Jeramy/ARB therapy. DVT prophylaxis: Lovenox Anticipated discharge date: in AM Anticipated discharge place: [facility] This dictation was prepared using [employer] voice recognition software. Though every attempt is made to correct errors during during dictation some may still exist. Objective - Vital Signs Vital signs: Vital Signs Temp 98.2 F 02/16/23 02:00 Pulse 100 02/16/23 12:30 Resp 16 02/16/23 12:30 BP 100/65 02/16/23 12:30 Pulse Ox 97 02/16/23 12:30 FiO2 Intake & Output 02/15/23 02/16/23 02/16/23 18:59 06:59 18:59 Intake Total 25.083 483.083 318 Output Total 1250 600 Balance -1224.917 -116.917 318 Weight 68.039 kg 68.039 kg Intake: Intake, IV Titration 25.083 3.083 Amount Insulin Regular 100 unit 25.083 3.083 In Sodium Chloride 0.9% 100 ml @ 0.1 UNITS/KG/HR 6.872 mls/hr IV .[id number] [facility] Rx#:[id number] Oral 480 318 Output: Urine 1250 600 Other: # Voids 1 - Labs CBC & Chem 7: 02/16/23 07:53 02/16/23 07:53 Labs: Abnormal Lab Results - Last 24 Hours (Table) 02/15/23 02/15/23 02/15/23 Range/Units 15:28 16:00 16:26 WBC (3.8-10.6) k/uL Carbon Dioxide 15 L (22-30) mmol/L BUN (9-20) mg/dL Creatinine 0.64 L (0.66-1.25) mg/dL Glucose 204 H (74-99) mg/dL POC Glucose (mg/dL) 222 H 178 H (70-110) mg/dL Hemoglobin A1c (0.0-6.0) % Total Protein (6.3-8.2) g/dL 02/15/23 02/15/23 02/15/23 Range/Units 17:30 18:30 19:32 WBC (3.8-10.6) k/uL Carbon Dioxide (22-30) mmol/L BUN (9-20) mg/dL Creatinine (0.66-1.25) mg/dL Glucose (74-99) mg/dL POC Glucose (mg/dL) 156 H 122 H 112 H (70-110) mg/dL Hemoglobin A1c (0.0-6.0) % Total Protein (6.3-8.2) g/dL 02/15/23 02/15/23 02/15/23 Range/Units 20:30 20:31 21:42 WBC (3.8-10.6) k/uL Carbon Dioxide 21 L (22-30) mmol/L BUN 7 L (9-20) mg/dL Creatinine 0.53 L (0.66-1.25) mg/dL Glucose 137 H (74-99) mg/dL POC Glucose (mg/dL) 132 H 146 H (70-110) mg/dL Hemoglobin A1c (0.0-6.0) % Total Protein (6.3-8.2) g/dL 02/15/23 02/15/23 02/16/23 Range/Units 22:26 23:40 00:49 WBC (3.8-10.6) k/uL Carbon Dioxide (22-30) mmol/L BUN (9-20) mg/dL Creatinine (0.66-1.25) mg/dL Glucose (74-99) mg/dL POC Glucose (mg/dL) 198 H 243 H 298 H (70-110) mg/dL Hemoglobin A1c (0.0-6.0) % Total Protein (6.3-8.2) g/dL 02/16/23 02/16/23 02/16/23 Range/Units 01:30 06:18 07:53 WBC (3.8-10.6) k/uL Carbon Dioxide (22-30) mmol/L BUN (9-20) mg/dL Creatinine (0.66-1.25) mg/dL Glucose (74-99) mg/dL POC Glucose (mg/dL) 300 H 205 H (70-110) mg/dL Hemoglobin A1c 8.6 H (0.0-6.0) % Total Protein (6.3-8.2) g/dL 02/16/23 02/16/23 02/16/23 Range/Units 07:53 07:53 11:54 WBC 13.2 H (3.8-10.6) k/uL Carbon Dioxide (22-30) mmol/L BUN 6 L (9-20) mg/dL Creatinine 0.46 L (0.66-1.25) mg/dL Glucose 127 H (74-99) mg/dL POC Glucose (mg/dL) 231 H (70-110) mg/dL Hemoglobin A1c (0.0-6.0) % Total Protein 6.1 L (6.3-8.2) g/dL
[2023-02-16 16:45] LABS: Glucose,Whole Blood 102 mg/dL (70-110)
[2023-02-16 20:06] LABS: Glucose,Whole Blood 314 mg/dL (70-110)
[2023-02-16] MEDS ORDERED: INSULIN DETEMIR (LEVEMIR) 100 UNIT/ML SYR SQ SCH (21:00)
[2023-02-16] MEDS ORDERED: DIVALPROEX 500 MG TABLET.DR PO SCH (21:00)
[2023-02-16] MEDS: traZODone HCL 100 MG TAB PO SCH (22:31)
[2023-02-16 23:55] LABS: Glucose,Whole Blood 164 mg/dL (70-110)
[2023-02-17 01:59] LABS: Glucose,Whole Blood 96 mg/dL (70-110)
[2023-02-17] MEDS: INSULIN ASPART (NovoLOG) 100 UNIT/ML VIAL SQ SCH ×5 (03:15→12:14)
[2023-02-17 06:29] LABS: Glucose,Whole Blood 136 mg/dL (70-110)
[2023-02-17] MEDS: PANTOPRAZOLE 40 MG TABLET PO SCH (06:52)
[2023-02-17 07:17] VITALS: TEMP 98
[2023-02-17 08:00] LABS: HCT 40.4 % (39.0-53.0); HGB 13.9 gm/dL (13.0-17.5); MCHC 34.5 g/dL (31.0-37.0); MCV 89.7 fL (80.0-100.0); Mean Platelet Volume 8.4; Platelet Count 136 k/uL (150-450); RDW 12.6 % (11.5-15.5)
[2023-02-17] MEDS: cloNIDine HCL 0.1 MG TAB PO SCH (08:38)
[2023-02-17] MEDS: ENOXAPARIN 40 MG/0.4 ML SYRINGE SQ SCH (08:38)
[2023-02-17] MEDS: LITHIUM CARBONATE 300 MG CAP PO SCH (08:39)
[2023-02-17 08:43] VITALS: RESP 16
[2023-02-17] MEDS ORDERED: DIVALPROEX 500 MG TABLET.DR PO SCH (09:00)
[2023-02-17 12:02] LABS: Glucose,Whole Blood 119 mg/dL (70-110)
[2023-02-17 12:20] VITALS: BP 115/65; PULSE 78
--- NOTE | 2023-02-17 13:12 | P.DS ---
Providers Date of admission: 02/15/23 11:33 Expected date of discharge: 02/17/23 Attending physician: Gissell Bedolla DO Consults: 02/15/23 11:44 Consult Physician Urgent Consulting Provider: Morgan Metz Reason/Comments: critical care Do you want consulting provider notified?: Already Contacted 02/15/23 14:00 Consult Physician Routine Consulting Provider: Solitario Flores Consult Reason/Comments: suicidal ideation Do you want consulting provider notified?: Yes Primary care physician: Stated None Hospital Course: Admitting diagnosis: DKA Discharge diagnoses: DM 1 with resolved DKA Hemoglobin A1C 8.6 Nicotine dependency Suicidal ideation Bipolar disorder ADHD Patient is a 27 yo male with DM 1 diagnosed as a small child, ADD, and bipolar disorder who came to the emergency department after having high blood sugars this morning. In the ER he underwent an extensive evaluation. He was found have severe DKA. He was started on IV fluids and insulin drip. Patient reported morning of admission he felt awful and checked his sugars and they were greater then 500. He was having some nausea and vomiting. He felt shaky and weak, he was having difficulty concentrating, and felt very fatigued. Currently he felt short of breath and was having a headache. He denied lgiht headedness, dizziness, blurry vision, and chest pain. His vomiting was better and he was feeling very thirsty. He reports that he purposely did not take his insulin last night to hurt himself. He reports that he is having difficulty with his girlfriend and having talked to another female. He reports that he recently moved out of his adult foster retirement. He has a grandmother which is his guardian. He recounts that his girlfriend is very important to him and he has very resentful that he hurt her. He states that he has suicidal ideations on a daily basis and that isn't new for him. He does report he was trying to harm himself, but not kill himself by not taking his insulin. Patient was treated for DKA with an insulin drip. Sugars improved. Medications were adjusted. Psychiatry did assess the patient during hospital stay. Patient was deemed appropriate for inpatient psych. General: [non toxic], [no distress], [appears at stated age] Derm: [warm], [dry] Head: [atraumatic], [normocephalic], [symmetric] Eyes: [EOMI], [no lid lag], [anicteric sclera] Mouth: [no lip lesion], [mucus membranes moist] Cardiovascular: [S1S2 reg], [no murmur], [positive posterior tibial pulse bilateral], Lungs: [CTA bilateral], [no rhonchi, no rales] , [no accessory muscle use] Abdominal: [soft], [ nontender to palpation], [no guarding], [no appreciable organomegaly] Ext: [no gross muscle atrophy], [no edema], [no contractures] Neuro: [ CN II-XI grossly intact], [no focal neuro deficits] Psych: [Alert], [oriented], [appropriate affect] Condition: Fair Disposition: Transfer to inpatient psych Activity: As tolerated Diet: Diabetic Follow-up with PCP once discharged from inpatient psych Follow-up with psychiatry immediately Patient Condition at Discharge: Fair Plan - Discharge Summary Discharge Rx Participant: Yes New Discharge Prescriptions: New Divalproex [Depakote] 500 mg PO DAILY #30 tab Melatonin 3 mg PO HS PRN #30 tab PRN Reason: Insomnia Nicotine Gum (Polacrilex) [Nicorette] 2 mg BUCCAL Q2HR PRN #90 pieceofgum PRN Reason: Nicotine Cravings Divalproex [Depakote] 1,000 mg PO HS #30 tab Insulin Detemir (Levemir) [Levemir] 25 unit SQ HS #1000 units INSULIN ASPART (NovoLOG) [NovoLOG (formulary)] 10 unit SQ AC-TID #100 units Continue OLANZapine 10 mg PO DAILY [place] Carbonate [Lithobid] 300 mg PO BID Budesonide/Formoterol Fumarate [Symbicort 160-4.5 Mcg Inhaler] 2 puff INHALATION RT-BID calcium polycarbophiL [Fiber-Lax] 625 mg PO BID Omeprazole 40 mg PO DAILY traZODone HCL 200 mg PO HS cloNIDine HCL [Catapres] 0.1 mg PO BID Discontinued Insulin Aspart [NovoLOG Flexpen] See Protocol SQ AC-TID Insulin Aspart [NovoLOG Flexpen] 12 units SQ AC-TID Insulin Detemir [Levemir Flexpen] 36 units SQ HS Ibuprofen [Motrin] 600 mg PO TID PRN PRN Reason: Pain traZODone HCL 50 mg PO HS PRN PRN Reason: Insomnia Divalproex [Depakote] 250 mg PO DAILY Divalproex Sodium [Depakote] 500 mg PO TID Discharge Medication List OLANZapine 10 mg PO DAILY 03/14/22 [History] Omeprazole 40 mg PO DAILY 03/14/22 [History] Budesonide/Formoterol Fumarate [Symbicort 160-4.5 Mcg Inhaler] 2 puff INHALATION RT-BID 02/15/23 [History] [place] Carbonate [Lithobid] 300 mg PO BID 02/15/23 [History] calcium polycarbophiL [Fiber-Lax] 625 mg PO BID 02/15/23 [History] cloNIDine HCL [Catapres] 0.1 mg PO BID 02/15/23 [History] traZODone HCL 200 mg PO HS 02/15/23 [History] Divalproex [Depakote] 1,000 mg PO HS #30 tab 02/17/23 [Rx] Divalproex [Depakote] 500 mg PO DAILY #30 tab 02/17/23 [Rx] INSULIN ASPART (NovoLOG) [NovoLOG (formulary)] 10 unit SQ AC-TID #100 units 02/17/23 [Rx] Insulin Detemir (Levemir) [Levemir] 25 unit SQ HS #1000 units 02/17/23 [Rx] Melatonin 3 mg PO HS PRN #30 tab 02/17/23 [Rx] Nicotine Gum (Polacrilex) [Nicorette] 2 mg BUCCAL Q2HR PRN #90 pieceofgum 02/17/23 [Rx] Follow up Appointment(s)/Referral(s): None,Stated [Primary Care Provider] - 1-2 days Discharge Disposition: TRANSFER TO PSYCH HOSP/UNIT
--- NOTE | 2023-02-17 13:54 | P.PN ---
Progress Note - Text Progress Note Date: 02/17/23 Interval History: Patient was seen resting in bed and was directable and agreeable to speak with magnetic tape typewriter operator in his room. Currently, the patient is vehemently denying any suicidal or homicidal ideation, intention, and/or plan. He reports no auditory or visual hallucinations. He reports no paranoia or other delusions. He states he has been able to speak with his girlfriend and they have been working things out. He continues to be apologetic over his overreaction and his abrupt discontinuation of his insulin. We discussed at length appropriate safety planning when he experiences mood dysregulation including breathing exercises, grounding, and utilizing crisis numbers. He remains future and goal oriented, stating he is planning to go to [facility]. He reports having counseling services over the phone on a weekly basis. Mental Status Exam: General Appearance: Patient appears to be stated age is alert, directable, and cooperative. Behavior: Patient is calmly seated without any agitated behavior. Speech: Patient's speech is fluent and nonpressured. Mood/Affect: Mood is "great and ready to leave," affect is congruent and expansive. Suicidality/Homicidality: Patient denies having any suicidal or homicidal ideation intent or plan. Perceptions: Patient denies any visual hallucinations and denies any auditory hallucinations Though content/process: There is no evidence of any delusional thought content and thought process is linear and goal-directed. Memory and concentration: AOX3, grossly intact for the purposes of this session Judgment and insight: Improved Vital Signs Temp 98 F 02/17/23 02:00 Pulse 78 02/17/23 12:19 Resp 16 02/17/23 12:19 BP 115/65 02/17/23 12:19 Pulse Ox 99 02/17/23 12:19 FiO2 Intake & Output 02/16/23 02/17/23 02/17/23 18:59 06:59 18:59 Intake Total 558 518 Balance 558 518 Weight 68.039 kg 68.039 kg Intake: Oral 558 518 Other: # Voids 1 Laboratory Results - Last 24 Hours 02/16/23 02/16/23 02/16/23 07:53 16:43 20:04 WBC RBC Hgb Hct MCV MCH MCHC RDW Plt Count MPV POC Glucose (mg/dL) 102 314 H POC Glu Admitting Coordinator ID Zackary Hendrix Alyss[address] Glu mg/dL 199 Hemoglobin A1c 8.6 H 02/16/23 02/17/23 02/17/23 23:53 01:58 06:27 WBC RBC Hgb Hct MCV MCH MCHC RDW Plt Count MPV POC Glucose (mg/dL) 164 H 96 136 H POC Glu Admitting Coordinator ID Jaci Davis Alyssa Matthews, Alyss[address] Glu mg/dL Hemoglobin A1c 02/17/23 02/17/23 07:30 11:59 WBC 7.0 RBC 4.50 Hgb 13.9 Hct 40.4 MCV 89.7 MCH 31.0 MCHC 34.5 RDW 12.6 Plt Count 136 L MPV 8.4 POC Glucose (mg/dL) 119 H POC Glu Admitting Coordinator ID Zackary Hendrix [address] Glu mg/dL Hemoglobin A1c Assessment Bipolar disorder, unspecified Adjustment disorder with mixed disturbance of emotions and conduct PTSD Cluster B personality disorder - suspect borderline personality disorder Diabetes mellitus type 1 Diabetic ketoacidosis Nicotine dependence Plan: -At this time patient DOES NOT meet criteria for inpatient psychiatric admission. The patient is future and goal oriented. He vehemently denies any suicidal ideation, intention, and/or plan. He maintains that him stopping insulin was not a suicide attempt but rather a desparate attempt at maintaining his relationship with his girlfriend. We discussed at length appropriate communication skills and safety planning. -Would recommend the following medication changes/additions: Depakote to 500 mg in the morning and 1000 mg at bedtime for mood stabilization lithium 300 mg by mouth twice a day for mood stabilization trazodone 200 mg by mouth at bedtime for insomnia Zyprexa 10 mg by mouth at bedtime for mood stabilization Continue clonidine 0.1 mg by mouth twice a day for PTSD -Patient does NOT require a 1:1 sitter. -Recommend outpatient psychiatry and psychotherapy follow-up -Psychoeducation and supportive therapy provided to patient. Risks and benefits of pharmacological treatment versus the risks and benefits of nontreatment weight and discussed. Informed consent discussion held. Common side effects of psychotropics discussed such as, but not limited to headache, GI disturbance, sexual dysfunction, movement disorders, sedation, and orthostatic hypotension. Life threatening and blackbox warnings of prescribed medications also discussed. Potential risks of operating a vehicle or heavy machinery discussed with patient at length. Advised on importance of compliance and a reliable and responsible manner. Patient advised to review FDA consumer labeling of all medications prior to taking. Patient verbalized understanding of potential risks, and agrees with current treatment plan. Patient advised to medically contact physician/emergency personnel if any acute changes in condition occur. -Patient is cleared psychiatrically for discharge.
[2023-02-17] MEDS ORDERED: OLANZapine 10 MG TAB PO SCH (21:00)
== END 2023-02-17 16:27 | disposition home or self-care (01) | DRG 420 ==
LOC: EC 09:22 → 2SICU 11:33 → 3SCARD 02-16 00:15
PROVIDERS: ADMIT Internal Medicine; ATTEND Internal Medicine
DX: E10.10 Type 1 diabetes mellitus with ketoacidosis without coma (principal); E87.5 Hyperkalemia; F17.210 Nicotine dependence, cigarettes, uncomplicated; R45.851 Suicidal ideations; F31.9 Bipolar disorder, unspecified; F90.9 Attention-deficit hyperactivity disorder, unspecified type; F43.29 Adjustment disorder with other symptoms; F60.3 Borderline personality disorder; F43.10 Post-traumatic stress disorder, unspecified; F43.25 Adjustment disorder with mixed disturbance of emotions and conduct; R00.0 Tachycardia, unspecified; F17.290 Nicotine dependence, other tobacco product, uncomplicated; Z91.14 Patient's other noncompliance with medication regimen; Z79.4 Long term (current) use of insulin; Z71.6 Tobacco abuse counseling; Z79.51 Long term (current) use of inhaled steroids; Z79.899 Other long term (current) drug therapy; Z91.52 Personal history of nonsuicidal self-harm; Z88.1 Allergy status to other antibiotic agents; Z88.0 Allergy status to penicillin; Z88.2 Allergy status to sulfonamides; Z88.8 Allergy status to other drugs, medicaments and biological substances
CPT/HCPCS: 36415; 71046; 80048; 80051; 80053; 80164; 80178; 81003; 82009; 82565; 82803; 82947; 83036; 83735; 84100; 84520; 85025; 85027; 93005; 94760; 96361; 96374; 96375; 96376; 99291

== ENCOUNTER 2023-03-26 22:16 | Emergency (ER) | payer OTHER ==
[2023-03-26 22:39] VITALS: BP 116/82; RESP 18; TEMP 98.4
--- NOTE | 2023-03-26 22:55 | ED ---
Chest Pain HPI - General Chief Complaint: Chest Pain Stated Complaint: Chest Pain, Low blood sugar Time Seen by Provider: 03/26/23 22:41 Source: patient Mode of arrival: ambulatory Limitations: no limitations - History of Present Illness Initial Comments: This patient is 27-year-old man who presents to have evaluation of intermittent chest pains of been going on for approximately one week. He states that they last for variable amount time from seconds to minutes. Usually dull but occasionally sharp component to the pain. The do not seem to be related to anything in particular. He does not get them with exertion or movement. No accompanying symptoms. The patient states that he had also checked his blood sugar tonight and it was only 69 and he was concerned about that. MD Complaint: chest pain Onset/Timin -: week(s) Onset: during rest Pain Location: substernal, left chest Pain Radiation: none Quality: dull Consistency: intermittent Improves With: nothing Worsens With: nothing Treatments Prior to Arrival: none - Related Data Home Medications Medication Instructions Recorded Confirmed OLANZapine 10 mg PO DAILY 03/14/22 04/03/23 Omeprazole 40 mg PO DAILY 03/14/22 04/03/23 Budesonide/Formoterol Fumarate 2 puff INHALATION RT-BID 02/15/23 04/03/23 [Symbicort 160-4.5 Mcg Inhaler] calcium polycarbophiL [Fiber-Lax] 625 mg PO BID 02/15/23 04/03/23 cloNIDine HCL [Catapres] 0.1 mg PO BID 02/15/23 04/03/23 traZODone HCL 200 mg PO HS 02/15/23 04/03/23 Divalproex [Depakote] 250 mg PO DAILY 04/03/23 04/03/23 Divalproex [Depakote] 500 mg PO TID 04/03/23 04/03/23 INSULIN ASPART (NovoLOG) [NovoLOG See Protocol SQ ACHS 04/03/23 04/03/23 (formulary)] [place] Carbonate 300 mg PO BID 04/03/23 04/03/23 Previous Rx's Medication Instructions Recorded Insulin Detemir (Levemir) [Levemir] 25 unit SQ HS #1000 units 02/17/23 Melatonin 3 mg PO HS PRN #30 tab 02/17/23 Allergies Allergy/AdvReac Type Severity Reaction Status Date / Time amoxicillin Allergy Anaphylaxis Verified 04/03/23 12:10 Penicillins Allergy Anaphylaxis Verified 04/03/23 12:10 risperidone [From Risperdal] Allergy Anaphylaxis Verified 04/03/23 12:10 Sulfa (Sulfonamide Allergy Anaphylaxis Verified 04/03/23 12:10 Antibiotics) Review of Systems ROS Statement: Those systems with pertinent positive or pertinent negative responses have been documented in the HPI. ROS Other: All systems not noted in ROS Statement are negative. Constitutional: Denies: fever, chills Respiratory: Denies: cough, dyspnea Cardiovascular: Reports: chest pain. Denies: palpitations, edema, syncope Gastrointestinal: Denies: abdominal pain, nausea, vomiting Genitourinary: Denies: dysuria Skin: Denies: rash Neurological: Denies: headache, weakness EKG Findings - EKG Results: EKG: interpreted by ELEAZAR, sinus rhythm EKG shows: tachycardia (Rate 104 bpm) - Blocks, [place], Hypertrophy, ST Abn: Repolarization changes or abnormalities: nonspecific abnormality, ST segment, and/or T wave (Patient has diffuse T inversions in the anterior and inferior leads that are on the old comparison ECGs.) Past Medical History Past Medical History: Diabetes Mellitus Additional Past Medical History / Comment(s): TBI History of Any Multi-Drug Resistant Organisms: None Reported Past Surgical History: No Surgical Hx Reported Additional Past Surgical History / Comment(s): right arm, right hand, skull Past Psychological History: ADD/ADHD, Anxiety, Bipolar Smoking Status: Vaper Past Alcohol Use History: Rare Past Drug Use History: Marijuana General Exam Limitations: no limitations General appearance: alert, in no apparent distress Head exam: Present: atraumatic, normocephalic Eye exam: Present: normal appearance. Absent: scleral icterus, conjunctival injection Neck exam: Present: normal inspection Respiratory exam: Present: normal lung sounds bilaterally. Absent: respiratory distress, wheezes, rales, rhonchi, stridor, chest wall tenderness, accessory muscle use Cardiovascular Exam: Present: regular rate, normal rhythm, normal heart sounds. Absent: systolic murmur, diastolic murmur, rubs, gallop GI/Abdominal exam: Present: soft. Absent: distended, tenderness, guarding, rebound, rigid, mass Extremities exam: Present: normal inspection, normal capillary refill. Absent: pedal edema, calf tenderness Back exam: Present: normal inspection. Absent: CVA tenderness (R), CVA tenderness (L) Neurological exam: Present: alert Skin exam: Present: warm, dry, intact, normal color. Absent: rash Course Vital Signs 03/26/23 03/26/23 22:36 23:12 Temperature 98.4 F Pulse Rate 118 H Pulse Rate [ 100 Apical] Respiratory 18 Rate Blood Pressure 116/82 O2 Sat by Pulse 98 Oximetry Chest Pain MDM - MDM This patient is 28-year-old man presenting to have evaluation of chest pain that is not consistent with cardiac origin. The patient did have a slightly low blood sugar reading that did subsequently improve. Given the patient's type 1 diabetes I did recommend that he stay for evaluation, but the patient refused and signed himself out AGAINST MEDICAL ADVICE while I was in process of seeing another patient Was pt. sent in by a medical professional or institution (Dr. PA, GUEST SERVICES ASSISTANT, urgent care, hospital, or half-way...) When possible be specific @ -[No] Did you speak to anyone other than the patient for history (EMS, parent, family, police, friend...)? What history was obtained from this source @ -[No] Did you review nursing and triage notes (agree or disagree)? Why? @ -[I reviewed and agree with nursing and triage notes] Were old charts reviewed (outside hosp., previous admission, EMS record, old EKG, old radiological studies, urgent care reports/EKG's, half-way records)? Report findings @ -[No old charts were reviewed] Differential Diagnosis (chest pain, altered mental status, abdominal pain women, abdominal pain men, vaginal bleeding, weakness, fever, dyspnea, syncope, headache, dizziness, GI bleed, back pain, seizure, CVA, palpatations, mental health, musculoskeletal)? @ -[Differential Chest Pain: Stable Angina, Unstable Angina, STEMI, NSTEMI Aortic Dissection, Pneumothorax, Musculoskeletal, Esophageal Spasm GERD, Cholecystitis, Pancreatitis, Zoster, this is not meant to be an all-inclusive list. EKG interpreted by me (3pts min.). @ -[As above] X-rays interpreted by me (1pt min.). @ -[ CT interpreted by me (1pt min.). @ -[None done] U/S interpreted by me (1pt. min.). @ -[None done] What testing was considered but not performed or refused? (CT, X-rays, U/S, labs)? Why? @ -[None] What meds were considered but not given or refused? Why? @ -[None] Did you discuss the management of the patient with other professionals (denny best i.e. , PA, GUEST SERVICES ASSISTANT, lab, RT, psych nurse, social director, member services coordinator, teacher, boat officer, case work aide)? Give summary @ -[No] Was smoking cessation discussed for >3mins.? @ -[No] Was critical care preformed (if so, how long)? @ -[No] Were there social determinants of health that impacted care today? How? (Homelessness, low income, unemployed, alcoholism, drug addiction, transportation, low edu. Level, literacy, decrease access to med. care, halfway, rehab)? @ -[No] Was there de-escalation of care discussed even if they declined (Discuss DNR or withdrawal of care, Hospice)? DNR status @ -[No] What co-morbidities impacted this encounter? (DM, HTN, Smoking, COPD, CAD, Cancer, CVA, ARF, Chemo, Hep., AIDS, mental health diagnosis, sleep apnea, morbid obesity)? @ -[Type 1 diabetes Was patient admitted / discharged? Hospital course, mention meds given and route, prescriptions, significant lab abnormalities, going to OR and other pertinent info. @ -[The patient left AGAINST MEDICAL ADVICE while I was unable to estate planning counselor him further against this course of action Undiagnosed new problem with uncertain prognosis? @ -[No] Drug Therapy requiring intensive monitoring for toxicity (Heparin, Nitro, Insulin, Cardizem)? @ -[No] Were any procedures done? @ -[No] Diagnosis/symptom? @ -[Acute chest pain Acute, or Chronic, or Acute on Chronic? @ -[default] Uncomplicated (without systemic symptoms) or Complicated (systemic symptoms)? @ -[Unknown Side effects of treatment? @ -[No] Exacerbation, Progression, or Severe Exacerbation? @ -[No] Poses a threat to life or bodily function? How? (Chest pain, [place], [place], pneumonia, PE, COPD, DKA, ARF, appy, cholecystitis, CVA, Diverticulitis, Homicidal, Suicidal, threat to staff... and all critical care pts) @ -[Unknown Disposition Clinical Impression: Chest pain Disposition: Left Against Medical Advice Condition: Stable Referrals: Nonstaff,Physician [Primary Care Provider] - 1-2 days
[2023-03-26 23:17] VITALS: PULSE 100
== END 2023-03-26 23:58 | disposition left against medical advice (07) ==
LOC: EC 22:16
DX: R07.89 Other chest pain (principal); E11.9 Type 2 diabetes mellitus without complications; F31.9 Bipolar disorder, unspecified; F41.9 Anxiety disorder, unspecified; F17.290 Nicotine dependence, other tobacco product, uncomplicated; F12.90 Cannabis use, unspecified, uncomplicated; Z88.0 Allergy status to penicillin; Z88.1 Allergy status to other antibiotic agents; Z88.2 Allergy status to sulfonamides; Z88.8 Allergy status to other drugs, medicaments and biological substances; Z79.4 Long term (current) use of insulin; Z79.899 Other long term (current) drug therapy; Z79.51 Long term (current) use of inhaled steroids; Z53.29 Procedure and treatment not carried out because of patient's decision for other reasons
CPT/HCPCS: 93005; 99284

== ENCOUNTER 2023-04-03 00:27 | Inpatient (IN) | payer OTHER ==
[2023-04-03 00:53] LABS: Glucose,Whole Blood 551 mg/dL (70-110)
[2023-04-03] MEDS ORDERED: SODIUM CHLORIDE 0.9% 2,000 ML IV ONE (01:02)
[2023-04-03] MEDS ORDERED: ONDANSETRON 4 MG/2 ML VIAL IVP STA (01:13)
[2023-04-03] MEDS ORDERED: INSULIN REGULAR 100 UNIT/ML VIAL (IV) IV STA (01:13)
[2023-04-03 01:33] LABS: Basophils % (A) 0 %; Eosinophils % (A) 0 %; HCT 54.6 % (39.0-53.0); Lymphocytes # (A) 1.8 k/uL (1.0-4.8); Lymphocytes % (A) 17 %; MCH 30.5 pg (25.0-35.0); MCHC 33.9 g/dL (31.0-37.0); MCV 90.1 fL (80.0-100.0); Mean Platelet Volume 10.1; Monocytes # (A) 0.5 k/uL (0-1.0); Monocytes % (A) 4 %; Neutrophils # (A) 8.1 k/uL (1.3-7.7); Neutrophils % (A) 77 %; Platelet Count 218 k/uL (150-450); RBC 6.07 m/uL (4.30-5.90); RDW 13.1 % (11.5-15.5); WBC 10.6 k/uL (3.8-10.6)
--- NOTE | 2023-04-03 01:48 | ED ---
Nausea/Vomiting/Diarrhea HPI - General Chief complaint: Nausea/Vomiting/Diarrhea Stated complaint: hyperglycemia Time Seen by Provider: 04/03/23 01:01 Source: patient Mode of arrival: ambulatory Limitations: no limitations - History of Present Illness Initial comments: Patient is 28-year-old man with history of diabetes presenting with a few hours of intractable nausea and vomiting. He has not noted fever or chills. There is a little bit of abdominal discomfort throughout the abdomen. No change in bowel movements. MD complaint: nausea, vomiting -: hour(s) Description of Vomiting: food contents Associated Abdominal Pain: Yes Location: diffuse Severity: moderate Quality: cramping Consistency: constant Improves with: none Worsens with: none Associated Symptoms: nausea/vomiting - Related Data Home Medications Medication Instructions Recorded Confirmed OLANZapine 10 mg PO DAILY 03/14/22 04/03/23 Omeprazole 40 mg PO DAILY 03/14/22 04/03/23 Budesonide/Formoterol Fumarate 2 puff INHALATION RT-BID 02/15/23 04/03/23 [Symbicort 160-4.5 Mcg Inhaler] calcium polycarbophiL [Fiber-Lax] 625 mg PO BID 02/15/23 04/03/23 cloNIDine HCL [Catapres] 0.1 mg PO BID 02/15/23 04/03/23 traZODone HCL 200 mg PO HS 02/15/23 04/03/23 Divalproex [Depakote] 250 mg PO DAILY 04/03/23 04/03/23 Divalproex [Depakote] 500 mg PO TID 04/03/23 04/03/23 INSULIN ASPART (NovoLOG) [NovoLOG See Protocol SQ ACHS 04/03/23 04/03/23 (formulary)] [place] Carbonate 300 mg PO BID 04/03/23 04/03/23 Previous Rx's Medication Instructions Recorded Insulin Detemir (Levemir) [Levemir] 25 unit SQ HS #1000 units 02/17/23 Melatonin 3 mg PO HS PRN #30 tab 02/17/23 Allergies Allergy/AdvReac Type Severity Reaction Status Date / Time amoxicillin Allergy Anaphylaxis Verified 04/03/23 12:10 Penicillins Allergy Anaphylaxis Verified 04/03/23 12:10 risperidone [From Risperdal] Allergy Anaphylaxis Verified 04/03/23 12:10 Sulfa (Sulfonamide Allergy Anaphylaxis Verified 04/03/23 12:10 Antibiotics) Review of Systems ROS Statement: Those systems with pertinent positive or pertinent negative responses have been documented in the HPI. ROS Other: All systems not noted in ROS Statement are negative. Constitutional: Denies: fever, chills Respiratory: Denies: cough, dyspnea Cardiovascular: Denies: chest pain, palpitations Gastrointestinal: Reports: abdominal pain, nausea, vomiting. Denies: diarrhea Genitourinary: Denies: dysuria, hematuria Musculoskeletal: Denies: back pain Skin: Denies: rash Neurological: Denies: headache, weakness, numbness Past Medical History Past Medical History: Diabetes Mellitus Additional Past Medical History / Comment(s): TBI History of Any Multi-Drug Resistant Organisms: None Reported Past Surgical History: No Surgical Hx Reported Additional Past Surgical History / Comment(s): right arm, right hand, skull Past Psychological History: ADD/ADHD, Anxiety, Bipolar Smoking Status: Vaper Past Alcohol Use History: Rare Past Drug Use History: Marijuana General Exam Limitations: no limitations General appearance: alert, in no apparent distress Head exam: Present: atraumatic, normocephalic Eye exam: Present: normal appearance. Absent: scleral icterus, conjunctival injection ENT exam: Present: mucous membranes dry Neck exam: Present: normal inspection Respiratory exam: Present: normal lung sounds bilaterally. Absent: respiratory distress, wheezes, rales, rhonchi, stridor Cardiovascular Exam: Present: normal rhythm, tachycardia, normal heart sounds. Absent: systolic murmur, diastolic murmur, rubs, gallop GI/Abdominal exam: Present: soft. Absent: distended, tenderness, guarding, rebound, rigid, mass Extremities exam: Present: normal inspection, normal capillary refill. Absent: pedal edema, calf tenderness Back exam: Present: normal inspection. Absent: CVA tenderness (R), CVA tenderness (L) Neurological exam: Present: alert Skin exam: Present: warm, dry, intact, normal color. Absent: rash Course Vital Signs 04/03/23 04/03/23 04/03/23 00:39 01:34 02:33 Temperature 97.8 F Pulse Rate 129 H 110 H 102 H Pulse Rate [ Left Sitting Pulse Oximetery ] Respiratory 18 20 20 Rate Blood Pressure 121/81 139/100 130/93 Blood Pressure [Left Arm Sitting] O2 Sat by Pulse 99 100 100 Oximetry 04/03/23 04/03/23 04/03/23 05:29 05:39 06:11 Temperature 97.9 F Pulse Rate 125 H 114 H Pulse Rate [ 106 H Left Sitting Pulse Oximetery ] Respiratory 22 16 Rate Blood Pressure 134/84 Blood Pressure 114/75 [Left Arm Sitting] O2 Sat by Pulse 99 99 100 Oximetry Medical Decision Making - Medical Decision Making Patient is 28-year-old man found to be in DKA. Started on IV fluids, insulin, and will be admitted for further management of DKA. Case discussed with admitting physician Was pt. sent in by a medical professional or institution (, PA, HAND SINGER, urgent care, hospital, or [facility]...) When possible be specific @ -[No] Did you speak to anyone other than the patient for history (EMS, parent, family, police, friend...)? What history was obtained from this source @ -[No] Did you review nursing and triage notes (agree or disagree)? Why? @ -[I reviewed and agree with nursing and triage notes] Were old charts reviewed (outside hosp., previous admission, EMS record, old EKG, old radiological studies, urgent care reports/EKG's, [facility] records)? Report findings @ -[old charts were reviewed] Differential Diagnosis (chest pain, altered mental status, abdominal pain women, abdominal pain men, vaginal bleeding, weakness, fever, dyspnea, syncope, headache, dizziness, GI bleed, back pain, seizure, CVA, palpatations, mental health, musculoskeletal)? @ -[Differential Abdominal Pain Men: Appendicitis, cholecystitis, diverticulosis, ischemic bowel, pancreatitis, h epatitis, UTI, gastroenteritis, AAA, incarcerated hernia, bowel obstruction, constipation, inflammatory bowel, hepatitis, peptic ulcer disease, splenic infarction, perforated viscus, testicular torsion, this is not meant to be an all-inclusive list EKG interpreted by me (3pts min.). @ -[ X-rays interpreted by me (1pt min.). @ -[None done] CT interpreted by me (1pt min.). @ -[None done] U/S interpreted by me (1pt. min.). @ -[None done] What testing was considered but not performed or refused? (CT, X-rays, U/S, labs)? Why? @ -[None] What meds were considered but not given or refused? Why? @ -[None] Did you discuss the management of the patient with other professionals (professionals i.e. , PA, HAND SINGER, lab, RT, psych nurse, social scientist, record filing clerk, t eacher, airframe technical officer, shelter case manager)? Give summary @ -[Case discussed with admitting physician Was smoking cessation discussed for >3mins.? @ -[No] Was critical care preformed (if so, how long)? @ -[Yes, 30 minutes Were there social determinants of health that impacted care today? How? (Homelessness, low income, unemployed, alcoholism, drug addiction, transportation, low edu. Level, literacy, decrease access to med. care, half-way, rehab)? @ -[No] Was there de-escalation of care discussed even if they declined (Discuss DNR or withdrawal of care, Hospice)? DNR status @ -[No] What co-morbidities impacted this encounter? (DM, HTN, Smoking, COPD, CAD, Cancer, CVA, ARF, Chemo, Hep., AIDS, mental health diagnosis, sleep apnea, morbid obesity)? @ -[Diabetes Was patient admitted / discharged? Hospital course, mention meds given and route, prescriptions, significant lab abnormalities, going to OR and other pertinent info. @ -[Admitted to have fluid and insulin Undiagnosed new problem with uncertain prognosis? @ -[No] Drug Therapy requiring intensive monitoring for toxicity (Heparin, Nitro, Insulin, Cardizem)? @ -[Insulin Were any procedures done? @ -[No] Diagnosis/symptom? @ -[Acute diabetic ketoacidosis Acute, or Chronic, or Acute on Chronic? @ -[Acute Uncomplicated (without systemic symptoms) or Complicated (systemic symptoms)? @ -[Complicated Side effects of treatment? @ -[No] Exacerbation, Progression, or Severe Exacerbation? @ -[No] Poses a threat to life or bodily function? How? (Chest pain, USA, CT, pneumonia, PE, COPD, DKA, ARF, appy, cholecystitis, CVA, Diverticulitis, Homicidal, Suicidal, threat to staff... and all critical care pts) @ -[Yes - Lab Data Result diagrams: 04/03/23 01:15 04/03/23 12:15 Lab Results 04/03/23 04/03/23 04/03/23 Range/Units 00:51 01:15 02:19 WBC 10.6 (3.8-10.6) k/uL RBC 6.07 H (4.30-5.90) m/uL Hgb 18.5 H D (13.0-17.5) gm/dL Hct 54.6 H (39.0-53.0) % MCV 90.1 (80.0-100.0) fL MCH 30.5 (25.0-35.0) pg MCHC 33.9 (31.0-37.0) g/dL RDW 13.1 (11.5-15.5) % Plt Count 218 (150-450) k/uL MPV 10.1 Neutrophils % 77 % Lymphocytes % 17 % Monocytes % 4 % Eosinophils % 0 % Basophils % 0 % Neutrophils # 8.1 H (1.3-7.7) k/uL Lymphocytes # 1.8 (1.0-4.8) k/uL Monocytes # 0.5 (0-1.0) k/uL Eosinophils # 0.0 (0-0.7) k/uL Basophils # 0.0 (0-0.2) k/uL Sodium (137-145) mmol/L Potassium (3.5-5.1) mmol/L Chloride (98-107) mmol/L Carbon Dioxide (22-30) mmol/L Anion Gap mmol/L BUN (9-20) mg/dL Creatinine (0.66-1.25) mg/dL Est GFR (CKD-EPI)AfAm (>60 ml/min/1.73 sqM) Est GFR (CKD-EPI)NonAf (>60 ml/min/1.73 sqM) Glucose (74-99) mg/dL POC Glucose (mg/dL) 551 H 356 H (70-110) mg/dL POC Glu Regulatory Compliance Manager ID Tamra Gila Chen Calcium (8.4-10.2) mg/dL Total Bilirubin (0.2-1.3) mg/dL AST (17-59) U/L ALT (4-49) U/L Alkaline Phosphatase (38-126) U/L Total Protein (6.3-8.2) g/dL Albumin (3.5-5.0) g/dL Acetone, Qual (Negative) 04/03/23 04/03/23 Range/Units 02:20 05:00 WBC (3.8-10.6) k/uL RBC (4.30-5.90) m/uL Hgb (13.0-17.5) gm/dL Hct (39.0-53.0) % MCV (80.0-100.0) fL MCH (25.0-35.0) pg MCHC (31.0-37.0) g/dL RDW (11.5-15.5) % Plt Count (150-450) k/uL MPV Neutrophils % % Lymphocytes % % Monocytes % % Eosinophils % % Basophils % % Neutrophils # (1.3-7.7) k/uL Lymphocytes # (1.0-4.8) k/uL Monocytes # (0-1.0) k/uL Eosinophils # (0-0.7) k/uL Basophils # (0-0.2) k/uL Sodium 140 (137-145) mmol/L Potassium 4.5 (3.5-5.1) mmol/L Chloride 96 L (98-107) mmol/L Carbon Dioxide 16 L (22-30) mmol/L Anion Gap 28 mmol/L BUN 17 (9-20) mg/dL Creatinine 0.68 (0.66-1.25) mg/dL Est GFR (CKD-EPI)AfAm >90 (>60 ml/min/1.73 sqM) Est GFR (CKD-EPI)NonAf >90 (>60 ml/min/1.73 sqM) Glucose 382 H (74-99) mg/dL POC Glucose (mg/dL) 330 H (70-110) mg/dL POC Glu Regulatory Compliance Manager ID Gila Judge Calcium 8.7 (8.4-10.2) mg/dL Total Bilirubin 1.0 (0.2-1.3) mg/dL AST 32 (17-59) U/L ALT 25 (4-49) U/L Alkaline Phosphatase 83 (38-126) U/L Total Protein 7.5 (6.3-8.2) g/dL Albumin 4.8 (3.5-5.0) g/dL Acetone, Qual Positive (Negative) Critical Care Time Critical Care Time: Yes (30 minutes) Disposition Clinical Impression: Diabetic ketoacidosis Disposition: ADMITTED IP TO THIS HOSP Condition: Good Is patient prescribed a controlled substance at d/c from ED?: No
[2023-04-03 02:14] LABS: HGB 18.5 gm/dL (13.0-17.5)
[2023-04-03 02:37] LABS: Glucose,Whole Blood 356 mg/dL (70-110)
[2023-04-03 03:13] LABS: ALT 25 U/L (4-49); African American GFR (CKD) >90 (>60 ml/min/1.73 sqM); Anion Gap 28 mmol/L; Blood Urea Nitrogen 17 mg/dL (9-20); Calcium 8.7 mg/dL (8.4-10.2); Carbon Dioxide 16 mmol/L (22-30); Chloride 96 mmol/L (98-107); Glucose 382 mg/dL (74-99); Non-African American GFR(CKD) >90 (>60 ml/min/1.73 sqM); Sodium 140 mmol/L (137-145)
[2023-04-03 03:17] LABS: AST 32 U/L (17-59); Albumin 4.8 g/dL (3.5-5.0); Alkaline Phosphatase 83 U/L (38-126); Potassium 4.5 mmol/L (3.5-5.1); Total Protein 7.5 g/dL (6.3-8.2)
[2023-04-03] MEDS ORDERED: Magnesium Replacement Protocol 1 EACH MISC MISCELLANE PRN (04:49)
[2023-04-03] MEDS ORDERED: Potassium Replacement Protocol 1 EACH MISC MISCELLANE PRN (04:49)
[2023-04-03] MEDS ORDERED: DEXTROSE 50% SYRINGE 50 ML IVP PRN ×2 (04:49)
[2023-04-03] MEDS ORDERED: INSULIN REGULAR 100 UNIT in SODIUM CHLORIDE 0.9% 100 ML IV SCH (05:00)
[2023-04-03 05:04] LABS: Glucose,Whole Blood 330 mg/dL (70-110)
[2023-04-03] MEDS: SODIUM CHLORIDE 0.9% 1,000 ML IV SCH ×2 (05:24→08:50)
[2023-04-03] MEDS ORDERED: ONDANSETRON 4 MG/2 ML VIAL IM STA (05:39)
[2023-04-03 05:57] LABS: Glucose,Whole Blood 379 mg/dL (70-110)
[2023-04-03 06:51] LABS: Glucose,Whole Blood 291 mg/dL (70-110)
[2023-04-03] MEDS ORDERED: D5-0.45% NACL WITH KCL 20MEQ/L 1,000 ML IV SCH (07:30)
[2023-04-03 07:56] LABS: Glucose,Whole Blood 211 mg/dL (70-110)
[2023-04-03] MEDS ORDERED: ACETAMINOPHEN TAB 325 MG TAB PO PRN (07:56)
[2023-04-03 08:55] LABS: Glucose,Whole Blood 164 mg/dL (70-110)
[2023-04-03 08:55] LABS: African American GFR (CKD) >90 (>60 ml/min/1.73 sqM); Anion Gap 19 mmol/L; Blood Urea Nitrogen 11 mg/dL (9-20); Carbon Dioxide 19 mmol/L (22-30); Chloride 99 mmol/L (98-107); Glucose 227 mg/dL (74-99); Non-African American GFR(CKD) >90 (>60 ml/min/1.73 sqM); Phosphorus 2.5 mg/dL (2.5-4.5); Potassium 3.8 mmol/L (3.5-5.1); Sodium 137 mmol/L (137-145)
[2023-04-03 09:57] LABS: Glucose,Whole Blood 192 mg/dL (70-110)
[2023-04-03 10:47] LABS: Glucose,Whole Blood 113 mg/dL (70-110)
[2023-04-03 11:57] LABS: Glucose,Whole Blood 78 mg/dL (70-110)
[2023-04-03 12:29] LABS: Glucose,Whole Blood 78 mg/dL (70-110)
[2023-04-03 12:56] LABS: Glucose,Whole Blood 145 mg/dL (70-110)
[2023-04-03] MEDS ORDERED: MELATONIN 3 MG TABLET PO PRN (13:05)
[2023-04-03 13:06] LABS: African American GFR (CKD) >90 (>60 ml/min/1.73 sqM); Anion Gap 9 mmol/L; Blood Urea Nitrogen 11 mg/dL (9-20); Carbon Dioxide 28 mmol/L (22-30); Chloride 100 mmol/L (98-107); Glucose 84 mg/dL (74-99); Non-African American GFR(CKD) >90 (>60 ml/min/1.73 sqM); Phosphorus 2.7 mg/dL (2.5-4.5); Potassium 3.7 mmol/L (3.5-5.1); Sodium 137 mmol/L (137-145)
--- NOTE | 2023-04-03 13:09 | P.HPIM ---
History of Present Illness H&P Date: 04/03/23 History of present illness; patient is a 28-year-old gentleman with past medical history significant for insulin-dependent diabetes mellitus, ADHD, bipolar disorder who presented to the [facility] because of nausea and vomiting for the last few hours. Patient denies abdominal pain. There is no complaint of chest pain or shortness of breath. he denies missing any insulin doses at home. Denies any fever or chills at home. No complaint of lightheadedness or dizziness. Denies any complaint of urinary hesitancy urgency or incontinence. Denies any altered bowel movements. Initial lab work done in the ER showed approximately 10.6, hemoglobin 18.5, sodium 140, potassium 4.5, chloride 96, CO2 16, BUN 17 creatinine 0.68, initial blood sugars 551 Patient is admitted to the medicine service for DKA REVIEW OF SYSTEMS: CONSTITUTIONAL: No fever, no malaise, no fatigue. HEENT: No recent visual problems or hearing problems. Denied any sore throat. CARDIOVASCULAR: No chest pain, orthopnea, PND, no palpitations, no syncope. PULMONARY: No shortness of breath, no cough, no hemoptysis. GASTROINTESTINAL: As mentioned in HPI NEUROLOGICAL: No headaches, no weakness, no numbness. HEMATOLOGICAL: Denies any bleeding or petechiae. GENITOURINARY: Denies any burning micturition, frequency, or urgency. MUSCULOSKELETAL/RHEUMATOLOGICAL: Denies any joint pain, swelling, or any muscle pain. ENDOCRINE: Denies any polyuria or polydipsia. The rest of the 14-point review of systems is negative. PHYSICAL EXAMINATION: GENERAL: The patient is alert and oriented x3, not in any acute distress. Well developed, well nourished. HEENT: Pupils are round and equally reacting to light. EOMI. No scleral icterus. No conjunctival pallor. Normocephalic, atraumatic. No pharyngeal erythema. No thyromegaly. CARDIOVASCULAR: S1 and S2 present. No murmurs, rubs, or gallops. PULMONARY: Chest is clear to auscultation, no wheezing or crackles. ABDOMEN: Soft, nontender, nondistended, normoactive bowel sounds. No palpable organomegaly. MUSCULOSKELETAL: No joint swelling or deformity. EXTREMITIES: No cyanosis, clubbing, or pedal edema. NEUROLOGICAL: Gross neurological examination did not reveal any focal deficits. SKIN: No rashes. Assessment and plan DKA Hyperglycemia AD HD Bipolar disorder Plan; Monitor vital signs monitor CBC Monitor CMP Serial electrolytes. Continue insulin drip Continue antiemetics Continue IV fluids Resume home meds DVT prophylaxis: Past Medical History Past Medical History: Diabetes Mellitus Additional Past Medical History / Comment(s): TBI History of Any Multi-Drug Resistant Organisms: None Reported Past Surgical History: No Surgical Hx Reported Additional Past Surgical History / Comment(s): right arm, right hand, skull Past Psychological History: ADD/ADHD, Anxiety, Bipolar Smoking Status: Vaper Past Alcohol Use History: Rare Past Drug Use History: Marijuana Medications and Allergies Home Medications Medication Instructions Recorded Confirmed Type OLANZapine 10 mg PO DAILY 03/14/22 04/03/23 History Omeprazole 40 mg PO DAILY 03/14/22 04/03/23 History Budesonide/Formoterol Fumarate 2 puff INHALATION RT-BID 02/15/23 04/03/23 Hi story [Symbicort 160-4.5 Mcg Inhaler] calcium polycarbophiL [Fiber-Lax] 625 mg PO BID 02/15/23 04/03/23 History cloNIDine HCL [Catapres] 0.1 mg PO BID 02/15/23 04/03/23 History traZODone HCL 200 mg PO HS 02/15/23 04/03/23 History Insulin Detemir (Levemir) [Levemir] 25 unit SQ HS #1000 units 02/17/23 04/03/23 Rx Melatonin 3 mg PO HS PRN #30 tab 02/17/23 04/03/23 Rx Divalproex [Depakote] 250 mg PO DAILY 04/03/23 04/03/23 History Divalproex [Depakote] 500 mg PO TID 04/03/23 04/03/23 History INSULIN ASPART (NovoLOG) [NovoLOG See Protocol SQ ACHS 04/03/23 04/03/23 History (formulary)] [place] Carbonate 300 mg PO BID 04/03/23 04/03/23 History Allergies Allergy/AdvReac Type Severity Reaction Status Date / Time amoxicillin Allergy Anaphylaxis Verified 04/03/23 12:10 Penicillins Allergy Anaphylaxis Verified 04/03/23 12:10 risperidone [From Risperdal] Allergy Anaphylaxis Verified 04/03/23 12:10 Sulfa (Sulfonamide Allergy Anaphylaxis Verified 04/03/23 12:10 Antibiotics) Physical Exam Vitals: Vital Signs Temp Pulse Pulse Resp BP BP Pulse Ox 04/03/23 08:00 98 F 114 H 18 116/68 97 04/03/23 06:11 114 H 100 04/03/23 05:39 97.9 F 106 H 16 114/75 99 04/03/23 05:29 125 H 22 134/84 99 04/03/23 02:33 102 H 20 130/93 100 04/03/23 01:34 110 H 20 139/100 100 04/03/23 00:39 97.8 F 129 H 18 121/81 99 Intake and Output 04/02/23 04/03/23 04/03/23 22:59 06:59 14:59 Intake Total 12.238 Output Total 350 Balance -337.762 Intake: Intake, IV Titration 12.238 Amount Insulin Regular 100 unit 12.238 In Sodium Chloride 0.9% 100 ml @ 0.1 UNITS/KG/HR 6.276 mls/hr IV .Q16H6M [facility] Rx#:[id number] Output: Urine 350 Other: Weight 62.142 kg Results CBC & Chem 7: 04/03/23 01:15 04/03/23 07:44 Labs: Abnormal Lab Results - Last 24 Hours (Table) 04/03/23 04/03/23 04/03/23 Range/Units 00:51 01:15 02:19 RBC 6.07 H (4.30-5.90) m/uL Hgb 18.5 H D (13.0-17.5) gm/dL Hct 54.6 H (39.0-53.0) % Neutrophils # 8.1 H (1.3-7.7) k/uL Chloride (98-107) mmol/L Carbon Dioxide (22-30) mmol/L Creatinine (0.66-1.25) mg/dL Glucose (74-99) mg/dL POC Glucose (mg/dL) 551 H 356 H (70-110) mg/dL 04/03/23 04/03/23 04/03/23 Range/Units 02:20 05:00 05:55 RBC (4.30-5.90) m/uL Hgb (13.0-17.5) gm/dL Hct (39.0-53.0) % Neutrophils # (1.3-7.7) k/uL Chloride 96 L (98-107) mmol/L Carbon Dioxide 16 L (22-30) mmol/L Creatinine (0.66-1.25) mg/dL Glucose 382 H (74-99) mg/dL POC Glucose (mg/dL) 330 H 379 H (70-110) mg/dL 04/03/23 04/03/23 04/03/23 Range/Units 06:49 07:44 07:54 RBC (4.30-5.90) m/uL Hgb (13.0-17.5) gm/dL Hct (39.0-53.0) % Neutrophils # (1.3-7.7) k/uL Chloride (98-107) mmol/L Carbon Dioxide 19 L (22-30) mmol/L Creatinine 0.57 L (0.66-1.25) mg/dL Glucose 227 H (74-99) mg/dL POC Glucose (mg/dL) 291 H 211 H (70-110) mg/dL 04/03/23 04/03/23 Range/Units 08:53 09:54 RBC (4.30-5.90) m/uL Hgb (13.0-17.5) gm/dL Hct (39.0-53.0) % Neutrophils # (1.3-7.7) k/uL Chloride (98-107) mmol/L Carbon Dioxide (22-30) mmol/L Creatinine (0.66-1.25) mg/dL Glucose (74-99) mg/dL POC Glucose (mg/dL) 164 H 192 H (70-110) mg/dL Thrombosis Risk Factor Assmnt - Choose All That Apply Any of the Below Risk Factors Present?: No
[2023-04-03] MEDS ORDERED: INSULIN DETEMIR (LEVEMIR) 100 UNIT/ML SYR SQ STA (13:17)
[2023-04-03] MEDS: DIVALPROEX 500 MG TABLET.DR PO SCH ×2 (15:31→21:40)
[2023-04-03 16:18] LABS: Glucose,Whole Blood 338 mg/dL (70-110)
[2023-04-03] MEDS: INSULIN ASPART (NovoLOG) 100 UNIT/ML VIAL SQ SCH ×2 (16:35→20:29)
[2023-04-03 20:07] LABS: Glucose,Whole Blood 164 mg/dL (70-110)
[2023-04-03] MEDS: LITHIUM CARBONATE 300 MG CAP PO SCH (20:30)
[2023-04-03] MEDS: cloNIDine HCL 0.1 MG TAB PO SCH (20:30)
[2023-04-03] MEDS ORDERED: traZODone HCL 100 MG TAB PO SCH (21:00)
[2023-04-03] MEDS ORDERED: INSULIN DETEMIR (LEVEMIR) 100 UNIT/ML SYR SQ SCH ×2 (21:00)
[2023-04-03] MEDS: SYMBICORT 160-4.5 MCG INHALER INHALATION SCH (21:05)
[2023-04-03 22:16] LABS: Glucose,Whole Blood 156 mg/dL (70-110)
[2023-04-04 01:55] LABS: Glucose,Whole Blood 195 mg/dL (70-110)
[2023-04-04] MEDS: INSULIN ASPART (NovoLOG) 100 UNIT/ML VIAL SQ SCH ×3 (01:58→12:00)
[2023-04-04 05:54] LABS: Glucose,Whole Blood 90 mg/dL (70-110)
[2023-04-04] MEDS ORDERED: PANTOPRAZOLE 40 MG TABLET PO SCH (07:30)
[2023-04-04] MEDS: SYMBICORT 160-4.5 MCG INHALER INHALATION SCH (07:54)
[2023-04-04 08:19] VITALS: RESP 18; TEMP 97.5
[2023-04-04] MEDS: LITHIUM CARBONATE 300 MG CAP PO SCH (08:20)
[2023-04-04] MEDS: cloNIDine HCL 0.1 MG TAB PO SCH (08:20)
[2023-04-04] MEDS: DIVALPROEX 500 MG TABLET.DR PO SCH (08:20)
[2023-04-04] MEDS ORDERED: OLANZapine 10 MG TAB PO SCH (09:00)
[2023-04-04] MEDS ORDERED: DIVALPROEX 250 MG TABLET.DR PO SCH (09:00)
--- NOTE | 2023-04-04 10:22 | P.DS ---
Providers Date of admission: 04/03/23 05:30 Expected date of discharge: 04/04/23 Attending physician: Jp Berkowitz Primary care physician: Stated None Hospital Course: Discharge diagnoses; DKA Hyperglycemia AD HD Bipolar disorder Hospital course; patient is a 28-year-old gentleman with past medical history significant for insulin-dependent diabetes mellitus, ADHD, bipolar disorder who presented to the [facility] ER because of nausea and vomiting for the last few hours. Patient denies abdominal pain. There is no complaint of chest pain or shortness of breath. he denies missing any insulin doses at home. Denies any fever or chills at home. No complaint of lightheadedness or dizziness. Denies any complaint of urinary hesitancy urgency or incontinence. Denies any altered bowel movements. Initial lab work done in the ER showed approximately 10.6, hemoglobin 18.5, sodium 140, potassium 4.5, chloride 96, CO2 16, BUN 17 creatinine 0.68, initial blood sugars 551 Patient is admitted to the medicine service for DKA 04/04. Patient seen and examined. DKA resolved. Blood sugars are stable. Tolerating diet. Patient keen to go home. Patient to follow-up with his PCP PHYSICAL EXAMINATION: GENERAL: The patient is alert and oriented x3, not in any acute distress. Well developed, well nourished. HEENT: Pupils are round and equally reacting to light. EOMI. No scleral icterus. No conjunctival pallor. Normocephalic, atraumatic. No pharyngeal erythema. No thyromegaly. CARDIOVASCULAR: S1 and S2 present. No murmurs, rubs, or gallops. PULMONARY: Chest is clear to auscultation, no wheezing or crackles. ABDOMEN: Soft, nontender, nondistended, normoactive bowel sounds. No palpable organomegaly. MUSCULOSKELETAL: No joint swelling or deformity. EXTREMITIES: No cyanosis, clubbing, or pedal edema. NEUROLOGICAL: Gross neurological examination did not reveal any focal deficits. SKIN: No rashes. Patient Condition at Discharge: Good Plan - Discharge Summary Discharge Rx Participant: No New Discharge Prescriptions: Continue OLANZapine 10 mg PO DAILY Budesonide/Formoterol Fumarate [Symbicort 160-4.5 Mcg Inhaler] 2 puff INHALATION RT-BID calcium polycarbophiL [Fiber-Lax] 625 mg PO BID Melatonin 3 mg PO HS PRN #30 tab PRN Reason: Insomnia Omeprazole 40 mg PO DAILY traZODone HCL 200 mg PO HS cloNIDine HCL [Catapres] 0.1 mg PO BID Insulin Detemir (Levemir) [Levemir] 25 unit SQ HS #1000 units INSULIN ASPART (NovoLOG) [NovoLOG (formulary)] See Protocol SQ ACHS Divalproex [Depakote] 500 mg PO TID [place] Carbonate 300 mg PO BID Divalproex [Depakote] 250 mg PO DAILY Discharge Medication List OLANZapine 10 mg PO DAILY 03/14/22 [History] Omeprazole 40 mg PO DAILY 03/14/22 [History] Budesonide/Formoterol Fumarate [Symbicort 160-4.5 Mcg Inhaler] 2 puff INHALATION RT-BID 02/15/23 [History] calcium polycarbophiL [Fiber-Lax] 625 mg PO BID 02/15/23 [History] cloNIDine HCL [Catapres] 0.1 mg PO BID 02/15/23 [History] traZODone HCL 200 mg PO HS 02/15/23 [History] Insulin Detemir (Levemir) [Levemir] 25 unit SQ HS #1000 units 02/17/23 [Rx] Melatonin 3 mg PO HS PRN #30 tab 02/17/23 [Rx] Divalproex [Depakote] 250 mg PO DAILY 04/03/23 [History] Divalproex [Depakote] 500 mg PO TID 04/03/23 [History] INSULIN ASPART (NovoLOG) [NovoLOG (formulary)] See Protocol SQ ACHS 04/03/23 [History] [place] Carbonate 300 mg PO BID 04/03/23 [History] Follow up Appointment(s)/Referral(s): None,Stated [Primary Care Provider] - 1-2 days Discharge Disposition: HOME SELF-CARE
[2023-04-04 11:34] LABS: Glucose,Whole Blood 239 mg/dL (70-110)
[2023-04-04 12:00] VITALS: BP 104/63; PULSE 77
[2023-04-04 13:05] VITALS: BMI 21.4
[2023-04-04] MEDS ORDERED: INSULIN DETEMIR (LEVEMIR) 100 UNIT/ML SYR SQ SCH (21:00)
== END 2023-04-04 12:50 | disposition home or self-care (01) | DRG 420 ==
LOC: EC 00:27 → 3SCARD 05:30
PROVIDERS: ADMIT Hospitalist; ATTEND Hospitalist
DX: E11.10 Type 2 diabetes mellitus with ketoacidosis without coma (principal); F31.9 Bipolar disorder, unspecified; F90.9 Attention-deficit hyperactivity disorder, unspecified type; Z79.4 Long term (current) use of insulin; Z79.51 Long term (current) use of inhaled steroids; Z79.899 Other long term (current) drug therapy; Z87.820 Personal history of traumatic brain injury; Z28.311 Partially vaccinated for COVID-19; Z88.0 Allergy status to penicillin; Z88.2 Allergy status to sulfonamides; Z88.8 Allergy status to other drugs, medicaments and biological substances
CPT/HCPCS: 36415; 80051; 80053; 82009; 82565; 82947; 84100; 84520; 85025; 96361; 96372; 96374; 99291

== ENCOUNTER 2023-06-26 23:45 | Emergency (ER) | payer OTHER ==
[2023-06-27] LABS: Glucose,Whole Blood 415 mg/dL (70-110)
--- NOTE | 2023-06-27 00:10 | ED ---
Recheck HPI - General Chief Complaint: Recheck/Abnormal Lab/Rx Stated Complaint: HyperGlycemia Source: patient, EMS, RN notes reviewed, old records reviewed Mode of arrival: EMS Limitations: no limitations - History of Present Illness Initial Comments: This is a 28-year-old male to the emergency department for evaluation. Patient presents today with history from type 1 diabetes coming in for elevated blood sugar today. Patient's blood sugar has been significantly elevated at home but he did increase home dosing of insulin and comes to the emergency department today for evaluation of persistent elevated blood sugar weakness and dehydration. Patient denies any chest pain shortness of breath or abdominal pain no nausea vomiting or diarrhea MD Complaint: abnormal lab (Elevated blood sugar) -: unknown Returns Today for: other (Elevated blood sugar and weakness) Symptoms Since Prior Visit: no new symptoms Context: called for abnormal lab result Associated Symptoms: none Treatments Prior to Arrival: other (Patient did take insulin prior to arrival) - Related Data Home Medications Medication Instructions Recorded Confirmed OLANZapine 10 mg PO DAILY 03/14/22 04/03/23 Omeprazole 40 mg PO DAILY 03/14/22 04/03/23 Budesonide/Formoterol Fumarate 2 puff INHALATION RT-BID 02/15/23 04/03/23 [Symbicort 160-4.5 Mcg Inhaler] calcium polycarbophiL [Fiber-Lax] 625 mg PO BID 02/15/23 04/03/23 cloNIDine HCL [Catapres] 0.1 mg PO BID 02/15/23 04/03/23 traZODone HCL 200 mg PO HS 02/15/23 04/03/23 Divalproex [Depakote] 250 mg PO DAILY 04/03/23 04/03/23 Divalproex [Depakote] 500 mg PO TID 04/03/23 04/03/23 INSULIN ASPART (NovoLOG) [NovoLOG See Protocol SQ ACHS 04/03/23 04/03/23 (formulary)] [place] Carbonate 300 mg PO BID 04/03/23 04/03/23 Previous Rx's Medication Instructions Recorded Insulin Detemir (Levemir) [Levemir] 25 unit SQ HS #1000 units 02/17/23 Melatonin 3 mg PO HS PRN #30 tab 02/17/23 Allergies Allergy/AdvReac Type Severity Reaction Status Date / Time amoxicillin Allergy Anaphylaxis Verified 04/03/23 12:10 Penicillins Allergy Anaphylaxis Verified 04/03/23 12:10 risperidone [From Risperdal] Allergy Anaphylaxis Verified 04/03/23 12:10 Sulfa (Sulfonamide Allergy Anaphylaxis Verified 04/03/23 12:10 Antibiotics) Review of Systems ROS Statement: Those systems with pertinent positive or pertinent negative responses have been documented in the HPI. ROS Other: All systems not noted in ROS Statement are negative. Past Medical History Past Medical History: Diabetes Mellitus Additional Past Medical History / Comment(s): TBI History of Any Multi-Drug Resistant Organisms: None Reported Past Surgical History: No Surgical Hx Reported Additional Past Surgical History / Comment(s): right arm, right hand, skull Past Psychological History: ADD/ADHD, Anxiety, Bipolar Smoking Status: Vaper Past Alcohol Use History: Rare Past Drug Use History: Marijuana General Exam Limitations: no limitations General appearance: alert, in no apparent distress, cachectic Head exam: Present: atraumatic, normocephalic, normal inspection Eye exam: Present: normal appearance, PERRL, EOMI. Absent: scleral icterus, conjunctival injection, periorbital swelling ENT exam: Present: normal exam, mucous membranes dry Neck exam: Present: normal inspection. Absent: tenderness, meningismus, lymphadenopathy Respiratory exam: Present: normal lung sounds bilaterally. Absent: respiratory distress, wheezes, rales, rhonchi, stridor Cardiovascular Exam: Present: regular rate, normal rhythm, normal heart sounds. Absent: systolic murmur, diastolic murmur, rubs, gallop, clicks GI/Abdominal exam: Present: soft, normal bowel sounds. Absent: distended, tenderness, guarding, rebound, rigid Extremities exam: Present: normal inspection, full ROM, normal capillary refill. Absent: tenderness, pedal edema, joint swelling, calf tenderness Back exam: Present: normal inspection Neurological exam: Present: alert, oriented X3, CN II-XII intact Psychiatric exam: Present: normal affect, normal mood Skin exam: Present: warm, dry, intact, normal color. Absent: rash Course Vital Signs 06/26/23 06/27/23 06/27/23 23:51 05:00 08:07 Temperature 97.6 F 98.1 F Pulse Rate 86 90 100 Respiratory 16 16 18 Rate Blood Pressure 118/78 133/84 135/83 O2 Sat by Pulse 100 97 Oximetry - Reevaluation(s) Reevaluation #1: 06/27/23 03:41 Medical records reviewed Reevaluation #2: 06/27/23 03:41 Patient symptoms improved eating and drinking Reevaluation #3: 06/27/23 03:41 Patient informed of results questions answered Reevaluation #4: 06/27/23 03:41 Was pt. sent in by a medical professional or institution (, JOSE, SENIOR EXAMINER, urgent care, hospital, or alf...) When possible be specific @ -no Did you speak to anyone other than the patient for history (EMS, parent, family, police, friend...)? What history was obtained from this source @ -no Did you review nursing and triage notes (agree or disagree)? Why? @ -agree Are old charts reviewed (outside hosp., previous admission, EMS record, old EKG, old radiological studies, urgent care reports/EKG's, alf records)? Report findings @ -yes Differential Diagnosis (chest pain, altered mental status, abdominal pain women, abdominal pain men, vaginal bleeding, weakness, fever, dyspnea, syncope, headache, dizziness, GI bleed, back pain, seizure, CVA, palpatations, mental health, musculoskeletal)? @ -prior EKG interpreted by me (3pts min.). @ -yes X-rays interpreted by me (1pt min.). @ -on CT interpreted by me (1pt min.). @ -no U/S interpreted by me (1pt. min.). @ -no What testing was considered but not performed or refused? (CT, X-rays, U/S, labs)? Why? @ -none What meds were considered but not given or refused? Why? @ -none Did you discuss the management of the patient with other professionals (professionals i.e. JOSE Acosta, SENIOR EXAMINER, lab, RT, psych nurse, health care social worker, veterinary meat inspector, teacher, investment officer, spring encaser)? Give summary @ -no Was smoking cessation discussed for >3mins.? @ -no Was critical care preformed (if so, how long)? @ -no Were there social determinants of health that impacted care today? How? (Homelessness, low income, unemployed, alcoholism, drug addiction, transportation, low edu. Level, literacy, decrease access to med. care, fdc, rehab)? @ -none Was there de-escalation of care discussed even if they declined (Discuss DNR or withdrawal of care, Hospice)? DNR status @ -no What co-morbidities impacted this encounter? (DM, HTN, Smoking, COPD, CAD, Cancer, CVA, ARF, Chemo, Hep., AIDS, mental health diagnosis, sleep apnea, morbid obesity)? @ -none Was patient admitted / discharged? Hospital course, mention meds given and route, prescriptions, significant lab abnormalities, going to OR and other per tinent info. @ - 28 male to the emergency department for evaluation of history of type 1 diabetes on insulin. Patient comes in with hypoglycemia today which is repaired here in the ER with significant hydration. Patient feels better and can be discharged home Discharge Undiagnosed new problem with uncertain prognosis? @ -no Drug Therapy requiring intensive monitoring for toxicity (Heparin, Nitro, Insulin, Cardizem)? @ -no Were any procedures done? @ -no Diagnosis/symptom? @ -Diabetic hyperglycemia Acute, or Chronic, or Acute on Chronic? @ -Acute Uncomplicated (without systemic symptoms) or Complicated (systemic symptoms)? @ -Complicated Side effects of treatment? @ -no Exacerbation, Progression, or Severe Exacerbation? @ -exacerbation Poses a threat to life or bodily function? How? (Chest pain, [place], NM, pneumonia, PE, COPD, DKA, ARF, appy, cholecystitis, CVA, Diverticulitis, Homicidal, Suicidal, threat to staff... and all critical care pts) @ -yes hyperglycemia DKA Medical Decision Making - Medical Decision Making 28 male to the emergency department for evaluation of history of type 1 diabetes on insulin. Patient comes in with hypoglycemia today which is repaired here in the ER with significant hydration. Patient feels better and can be discharged home - Lab Data Result diagrams: 06/27/23 01:18 06/27/23 01:18 Lab Results 06/26/23 06/27/23 06/27/23 Range/Units 23:58 01:18 01:18 WBC 8.9 (3.8-10.6) k/uL RBC 4.62 (4.30-5.90) m/uL Hgb 14.8 (13.0-17.5) gm/dL Hct 41.0 (39.0-53.0) % MCV 88.7 (80.0-100.0) fL MCH 32.1 (25.0-35.0) pg MCHC 36.2 (31.0-37.0) g/dL RDW 12.4 (11.5-15.5) % Plt Count 189 (150-450) k/uL MPV 9.1 Neutrophils % 51 % Lymphocytes % 40 % Monocytes % 6 % Eosinophils % 1 % Basophils % 1 % Neutrophils # 4.5 (1.3-7.7) k/uL Lymphocytes # 3.6 (1.0-4.8) k/uL Monocytes # 0.5 (0-1.0) k/uL Eosinophils # 0.1 (0-0.7) k/uL Basophils # 0.1 (0-0.2) k/uL Sodium 133 L (137-145) mmol/L Potassium 3.8 (3.5-5.1) mmol/L Chloride 100 (98-107) mmol/L Carbon Dioxide 22 (22-30) mmol/L Anion Gap 11 mmol/L BUN 13 (9-20) mg/dL Creatinine 0.37 L (0.66-1.25) mg/dL Est GFR (CKD-EPI)AfAm >90 (>60 ml/min/1.73 sqM) Est GFR (CKD-EPI)NonAf >90 (>60 ml/min/1.73 sqM) Glucose 299 H (74-99) mg/dL POC Glucose (mg/dL) 415 H (70-110) mg/dL POC Glu Director Of Development And Marketing [employer] HinojosaHortaMorgan Calcium 8.7 (8.4-10.2) mg/dL Phosphorus 3.2 (2.5-4.5) mg/dL Magnesium 1.7 (1.6-2.3) mg/dL Total Bilirubin 1.2 (0.2-1.3) mg/dL AST 22 (17-59) U/L ALT 22 (4-49) U/L Alkaline Phosphatase 79 (38-126) U/L Troponin I (0.000-0.034) ng/mL Total Protein 6.3 (6.3-8.2) g/dL Albumin 3.7 (3.5-5.0) g/dL 06/27/23 06/27/23 Range/Units 01:18 02:36 WBC (3.8-10.6) k/uL RBC (4.30-5.90) m/uL Hgb (13.0-17.5) gm/dL Hct (39.0-53.0) % MCV (80.0-100.0) fL MCH (25.0-35.0) pg MCHC (31.0-37.0) g/dL RDW (11.5-15.5) % Plt Count (150-450) k/uL MPV Neutrophils % % Lymphocytes % % Monocytes % % Eosinophils % % Basophils % % Neutrophils # (1.3-7.7) k/uL Lymphocytes # (1.0-4.8) k/uL Monocytes # (0-1.0) k/uL Eosinophils # (0-0.7) k/uL Basophils # (0-0.2) k/uL Sodium (137-145) mmol/L Potassium (3.5-5.1) mmol/L Chloride (98-107) mmol/L Carbon Dioxide (22-30) mmol/L Anion Gap mmol/L BUN (9-20) mg/dL Creatinine (0.66-1.25) mg/dL Est GFR (CKD-EPI)AfAm (>60 ml/min/1.73 sqM) Est GFR (CKD-EPI)NonAf (>60 ml/min/1.73 sqM) Glucose (74-99) mg/dL POC Glucose (mg/dL) 195 H (70-110) mg/dL POC Glu Director Of Development And Marketing [employer] Dominique [place] Calcium (8.4-10.2) mg/dL Phosphorus (2.5-4.5) mg/dL Magnesium (1.6-2.3) mg/dL Total Bilirubin (0.2-1.3) mg/dL AST (17-59) U/L ALT (4-49) U/L Alkaline Phosphatase (38-126) U/L Troponin I <0.012 (0.000-0.034) ng/mL Total Protein (6.3-8.2) g/dL Albumin (3.5-5.0) g/dL - EKG Data -: EKG Interpreted by Me (EKG is sinus 77 CA 121 QRS 90 QTC 409) Disposition Clinical Impression: Hyperglycemia Disposition: HOME SELF-CARE Condition: Good Instructions (If sedation given, give patient instructions): Diabetic Hyperglycemia (ED) Is patient prescribed a controlled substance at d/c from ED?: No Referrals: None,Stated [Primary Care Provider] - 1-2 days Time of Disposition: 02:50
[2023-06-27 01:33] LABS: Basophils # (A) 0.1 k/uL (0-0.2); Basophils % (A) 1 %; Eosinophils # (A) 0.1 k/uL (0-0.7); Eosinophils % (A) 1 %; HGB 14.8 gm/dL (13.0-17.5); Lymphocytes # (A) 3.6 k/uL (1.0-4.8); Lymphocytes % (A) 40 %; MCH 32.1 pg (25.0-35.0); MCHC 36.2 g/dL (31.0-37.0); MCV 88.7 fL (80.0-100.0); Mean Platelet Volume 9.1; Monocytes # (A) 0.5 k/uL (0-1.0); Monocytes % (A) 6 %; Neutrophils # (A) 4.5 k/uL (1.3-7.7); Neutrophils % (A) 51 %; Platelet Count 189 k/uL (150-450); RBC 4.62 m/uL (4.30-5.90); RDW 12.4 % (11.5-15.5); WBC 8.9 k/uL (3.8-10.6)
[2023-06-27 01:46] LABS: ALT 22 U/L (4-49); AST 22 U/L (17-59); African American GFR (CKD) >90 (>60 ml/min/1.73 sqM); Albumin 3.7 g/dL (3.5-5.0); Alkaline Phosphatase 79 U/L (38-126); Anion Gap 11 mmol/L; Blood Urea Nitrogen 13 mg/dL (9-20); Calcium 8.7 mg/dL (8.4-10.2); Carbon Dioxide 22 mmol/L (22-30); Chloride 100 mmol/L (98-107); Glucose 299 mg/dL (74-99); Magnesium 1.7 mg/dL (1.6-2.3); Non-African American GFR(CKD) >90 (>60 ml/min/1.73 sqM); Phosphorus 3.2 mg/dL (2.5-4.5); Potassium 3.8 mmol/L (3.5-5.1); Sodium 133 mmol/L (137-145); Total Bilirubin 1.2 mg/dL (0.2-1.3); Total Protein 6.3 g/dL (6.3-8.2)
[2023-06-27 02:38] LABS: Glucose,Whole Blood 195 mg/dL (70-110)
[2023-06-27 08:11] VITALS: BP 135/83; PULSE 100; RESP 18; TEMP 98.1
== END 2023-06-27 08:11 | disposition home or self-care (01) ==
LOC: EC 23:45
DX: E11.65 Type 2 diabetes mellitus with hyperglycemia (principal); F41.9 Anxiety disorder, unspecified; F31.9 Bipolar disorder, unspecified; F12.90 Cannabis use, unspecified, uncomplicated; F17.290 Nicotine dependence, other tobacco product, uncomplicated; Z79.4 Long term (current) use of insulin; Z79.51 Long term (current) use of inhaled steroids; Z79.899 Other long term (current) drug therapy; Z88.0 Allergy status to penicillin; Z88.2 Allergy status to sulfonamides; Z88.8 Allergy status to other drugs, medicaments and biological substances
CPT/HCPCS: 36415; 80053; 83735; 84100; 84484; 85025; 93005; 99285

== ENCOUNTER 2023-08-13 18:05 | Emergency (ER) | payer OTHER ==
[2023-08-13 19:21] LABS: Glucose,Whole Blood 242 mg/dL (70-110)
[2023-08-13] MEDS ORDERED: FAMOTIDINE 20 MG/2 ML VIAL IV STA (19:40)
[2023-08-13] MEDS ORDERED: SODIUM CHLORIDE 0.9% 2,000 ML IV STA (19:40)
[2023-08-13] MEDS ORDERED: ONDANSETRON 4 MG/2 ML VIAL IVP STA (19:40)
[2023-08-13] MEDS ORDERED: KETOROLAC 15 MG/ML 1 ML VIAL IVP STA (19:40)
--- NOTE | 2023-08-13 19:44 | ED ---
Weakness HPI - General Chief complaint: Weakness Stated complaint: Diabetic-chest pain-vomiting Time Seen by Provider: 08/13/23 19:26 Source: patient, RN notes reviewed Mode of arrival: wheelchair Limitations: no limitations - History of Present Illness Initial comments: This is a 28-year-old male who presents to the emergency department for weakness, nausea, and vomiting. Patient has type 1 diabetes and forgot to take his insulin last night. States that since approximately 2 AM he has felt very weak and ill. He has been throwing up multiple times and is complaining of associated chest pain and heartburn. Patient states that shortly before arrival he took 22 units of NovoLog and his blood sugar did seem to improve. This feels like the last time that he was in DKA, which was a couple of years ago. Denies any fevers, chills, sore throat, cough, dyspnea, palpitations, abdominal pain, diarrhea, back pain, or headaches. MD Complaint: generalized weakness - Related Data Home Medications Medication Instructions Recorded Confirmed INSULIN ASPART (NovoLOG) [NovoLOG See Protocol SQ ACHS PRN 04/03/23 08/13/23 (formulary)] Albuterol Inhaler [Ventolin Hfa 2 puff INHALATION RT-Q6H PRN 08/13/23 08/13/23 Inhaler] Ibuprofen [Motrin] 600 mg PO Q6HR PRN 08/13/23 08/13/23 Insulin Detemir (Levemir) [Levemir] 20 unit SQ HS 08/13/23 08/13/23 Paliperidone [Paliperidone ER] 3 mg PO HS 08/13/23 08/13/23 Allergies Allergy/AdvReac Type Severity Reaction Status Date / Time amoxicillin Allergy Anaphylaxis Verified 08/13/23 20:48 bee venom protein (honey bee) Allergy Rash/Hives Verified 08/13/23 20:48 Penicillins Allergy Anaphylaxis Verified 08/13/23 20:48 risperidone [From Risperdal] Allergy Anaphylaxis Verified 08/13/23 20:48 Sulfa (Sulfonamide Allergy Anaphylaxis Verified 08/13/23 20:48 Antibiotics) Review of Systems ROS Statement: Those systems with pertinent positive or pertinent negative responses have been documented in the HPI. ROS Other: All systems not noted in ROS Statement are negative. Past Medical History Past Medical History: Diabetes Mellitus Additional Past Medical History / Comment(s): TBI History of Any Multi-Drug Resistant Organisms: None Reported Past Surgical History: Orthopedic Surgery Additional Past Surgical History / Comment(s): right arm, right hand, skull Past Psychological History: ADD/ADHD, Anxiety, Bipolar Smoking Status: Vaper Past Alcohol Use History: Rare Past Drug Use History: Marijuana General Exam Limitations: no limitations General appearance: alert, in no apparent distress Head exam: Present: atraumatic, normocephalic, normal inspection Respiratory exam: Present: normal lung sounds bilaterally. Absent: respiratory distress, wheezes, rales, rhonchi, stridor Cardiovascular Exam: Present: normal rhythm, tachycardia, normal heart sounds Neurological exam: Present: alert, oriented X3, CN II-XII intact Psychiatric exam: Present: normal affect, normal mood Skin exam: Present: warm, dry, intact, normal color. Absent: rash Course Vital Signs 08/13/23 08/13/23 08/13/23 19:15 20:18 20:30 Temperature 98.3 F Pulse Rate 153 H 117 H Pulse Rate [ 118 H Service Tech/Welder ] Respiratory 22 19 Rate Blood Pressure 101/72 126/94 O2 Sat by Pulse 96 100 Oximetry 08/13/23 22:14 Temperature 98.1 F Pulse Rate 120 H Pulse Rate [ Service Tech/Welder ] Respiratory 18 Rate Blood Pressure 115/79 O2 Sat by Pulse 100 Oximetry Medical Decision Making - Medical Decision Making This is a 20-year-old male who presents to the emergency department for generalized weakness. Was pt. sent in by a medical professional or institution? @ -No Did you speak to anyone other than the patient for history? @ -No Did you review nursing and triage notes? @ -Yes, and I agree, it is accurate with regards to the patient's symptoms. Were old charts reviewed? @ -No Differential Diagnosis? @ -Differential Weakness: Hypoglycemia, shock, sepsis, hyponatremia, anemia, infection, TN, ETOH, adverse medicine reaction, overdose, stroke, this is not meant to be an all-inclusive list. EKG interpreted by me (3pts min.)? @ -EKG interpreted by me demonstrating the following: Sinus tachycardia. Ventricular rate 108 beats per minute, FL interval 119 ms, QRS duration 77 ms, QTC 381 ms. X-rays interpreted by me (1pt min.)? @ -Chest x-ray obtained, my interpretation identifies no localized consolidations or infiltrates. CT interpreted by me (1pt min.)? @ -Not obtained U/S interpreted by me (1pt. min.)? @ -Not obtained What testing was considered but not performed? (CT, X-rays, U/S, labs)? Why? @ -None What meds were considered but not given? Why? @ -None Did you discuss the management of the patient with other professionals? @ -No Did you reconcile home meds? @ -No Was smoking cessation discussed for >3mins.? @ -No Was critical care preformed (if so, how long)? @ -No Were there social determinants of health that impacted care today? How? (Homelessness, low income, unemployed, alcoholism, drug addiction, transportation, low edu. Level, literacy, decrease access to med. care, [facility], rehab)? @ -No Was there de-escalation of care discussed even if they declined? (Discuss DNR or withdrawal of care, Hospice)? @ -No What co-morbidities impacted this encounter? (DM, HTN, Smoking, COPD, CAD, Cancer, CVA, Hep., AIDS, mental health diagnosis, sleep apnea, morbid obesity)? @ -DM Was patient admitted / discharged? @ -Lab work obtained revealing leukocytosis, elevated lactic acid of 3.6, anion gap of 27, bicarbonate 16, and a glucose of 220. Patient is also acetone positive. Because he had just given himself 22 units of NovoLog, his sugar was lower than it had been earlier, however lab work is otherwise suggestive of DKA. Chest x-ray obtained revealing no acute process. Patient treated with IV fluids, Toradol, Zofran, and famotidine. Patient felt significantly improved following medication administration and requested discharge home. Patient was advised that he is in DKA and admission is strongly advised. Patient however declined and continued to request discharge home. He subsequently signed out AGAINST MEDICAL ADVICE. Undiagnosed new problem with uncertain prognosis? @ -None Drug Therapy requiring intensive monitoring for toxicity (Heparin, Nitro, Insulin, Cardizem)? @ -None Were any procedures done? @ -None Diagnosis/symptom? @ -DKA Acute, or Chronic, or Acute on Chronic? @ -Acute Uncomplicated (without systemic symptoms) or Complicated (systemic symptoms)? @ -Complicated Side effects of treatment? @ -None Exacerbation, Progression, or Severe Exacerbation] @ -Not applicable Poses a threat to life or bodily function? @ -Yes This case was discussed in detail with the attending ED physician, Dr. Santiago. Presentation, findings, and treatment plan discussed in detail as well. - Lab Data Result diagrams: 08/13/23 20:18 08/13/23 20:18 Lab Results 08/13/23 08/13/23 08/13/23 Range/Units 19:20 20:18 20:18 WBC 15.9 H (3.8-10.6) k/uL RBC 5.97 H (4.30-5.90) m/uL Hgb 18.9 H D (13.0-17.5) gm/dL Hct 52.5 (39.0-53.0) % MCV 87.9 (80.0-100.0) fL MCH 31.7 (25.0-35.0) pg MCHC 36.1 (31.0-37.0) g/dL RDW 12.1 (11.5-15.5) % Plt Count 229 (150-450) k/uL MPV 11.3 Neutrophils % 81 % Lymphocytes % 12 % Monocytes % 6 % Eosinophils % 0 % Basophils % 1 % Neutrophils # 12.8 H (1.3-7.7) k/uL Lymphocytes # 1.9 (1.0-4.8) k/uL Monocytes # 0.9 (0-1.0) k/uL Eosinophils # 0.0 (0-0.7) k/uL Basophils # 0.1 (0-0.2) k/uL Sodium 137 (137-145) mmol/L Potassium 4.4 (3.5-5.1) mmol/L Chloride 94 L (98-107) mmol/L Carbon Dioxide 16 L (22-30) mmol/L Anion Gap 27 mmol/L BUN 22 H (9-20) mg/dL Creatinine 0.77 (0.66-1.25) mg/dL Est GFR (CKD-EPI)AfAm >90 (>60 ml/min/1.73 sqM) Est GFR (CKD-EPI)NonAf >90 (>60 ml/min/1.73 sqM) Glucose 220 H (74-99) mg/dL POC Glucose (mg/dL) 242 H (70-110) mg/dL POC Glu Airway Controller ID Willing, Laquita Lactic Ac Sepsis Rflx Plasma Lactic Acid Flaco (0.7-2.0) mmol/L Calcium 11.0 H (8.4-10.2) mg/dL Phosphorus 5.6 H (2.5-4.5) mg/dL Magnesium 2.0 (1.6-2.3) mg/dL Total Bilirubin 1.9 H (0.2-1.3) mg/dL AST 43 (17-59) U/L ALT 39 (4-49) U/L Alkaline Phosphatase 152 H (38-126) U/L Total Protein 9.1 H (6.3-8.2) g/dL Albumin 5.6 H (3.5-5.0) g/dL Acetone, Qual Positive (Negative) 08/13/23 08/13/23 Range/Units 20:18 20:50 WBC (3.8-10.6) k/uL RBC (4.30-5.90) m/uL Hgb (13.0-17.5) gm/dL Hct (39.0-53.0) % MCV (80.0-100.0) fL MCH (25.0-35.0) pg MCHC (31.0-37.0) g/dL RDW (11.5-15.5) % Plt Count (150-450) k/uL MPV Neutrophils % % Lymphocytes % % Monocytes % % Eosinophils % % Basophils % % Neutrophils # (1.3-7.7) k/uL Lymphocytes # (1.0-4.8) k/uL Monocytes # (0-1.0) k/uL Eosinophils # (0-0.7) k/uL Basophils # (0-0.2) k/uL Sodium (137-145) mmol/L Potassium (3.5-5.1) mmol/L Chloride (98-107) mmol/L Carbon Dioxide (22-30) mmol/L Anion Gap mmol/L BUN (9-20) mg/dL Creatinine (0.66-1.25) mg/dL Est GFR (CKD-EPI)AfAm (>60 ml/min/1.73 sqM) Est GFR (CKD-EPI)NonAf (>60 ml/min/1.73 sqM) Glucose (74-99) mg/dL POC Glucose (mg/dL) (70-110) mg/dL POC Glu Airway Controller ID Lactic Ac Sepsis Rflx Y Plasma Lactic Acid Flaco 3.6 H* (0.7-2.0) mmol/L Calcium (8.4-10.2) mg/dL Phosphorus (2.5-4.5) mg/dL Magnesium (1.6-2.3) mg/dL Total Bilirubin (0.2-1.3) mg/dL AST (17-59) U/L ALT (4-49) U/L Alkaline Phosphatase (38-126) U/L Total Protein (6.3-8.2) g/dL Albumin (3.5-5.0) g/dL Acetone, Qual (Negative) - Radiology Data Radiology results: report reviewed, image reviewed Disposition Clinical Impression: DKA (diabetic ketoacidosis), Nausea and vomiting Disposition: LEFT AGAINST MEDICAL ADVICE Instructions (If sedation given, give patient instructions): Diabetic Ketoacidosis (DC), Acute Nausea and Vomiting (ED) Additional Instructions: Return to the emergency department with any new, worsening, or concerning symptoms. Check your blood sugar closely and take your insulin as prescribed. You can take the Zofran up to every 8 hours as needed for nausea and vomiting. Slowly advance your diet as tolerated and remain well-hydrated. Follow up with your primary care provider in 1-2 days. Is patient prescribed a controlled substance at d/c from ED?: No Referrals: None,Stated [Primary Care Provider] - 1-2 days
--- NOTE | 2023-08-13 20:38 | XR ---
EXAMINATION TYPE: XR chest 2V DATE OF EXAM: 08/13/2023 COMPARISON: 02/15/2023 HISTORY: Chest pain TECHNIQUE: Frontal and lateral views of the chest are obtained. FINDINGS: There is no focal air space opacity. No evidence for pneumothorax. No pleural effusion. The cardiac silhouette size is within normal limits. The osseous structures are grossly intact. IMPRESSION: 1. No acute cardiopulmonary process.
[2023-08-13 20:44] LABS: ALT 39 U/L (4-49); AST 43 U/L (17-59); African American GFR (CKD) >90 (>60 ml/min/1.73 sqM); Albumin 5.6 g/dL (3.5-5.0); Alkaline Phosphatase 152 U/L (38-126); Anion Gap 27 mmol/L; Blood Urea Nitrogen 22 mg/dL (9-20); Carbon Dioxide 16 mmol/L (22-30); Chloride 94 mmol/L (98-107); Glucose 220 mg/dL (74-99); Non-African American GFR(CKD) >90 (>60 ml/min/1.73 sqM); Phosphorus 5.6 mg/dL (2.5-4.5); Potassium 4.4 mmol/L (3.5-5.1); Sodium 137 mmol/L (137-145); Total Bilirubin 1.9 mg/dL (0.2-1.3); Total Protein 9.1 g/dL (6.3-8.2)
[2023-08-13] MEDS ORDERED: ONDANSETRON 4 MG ODT STARTER PACK 2 TAB BTL PO STA (22:03)
[2023-08-13] MEDS ORDERED: IBUPROFEN 600 MG STARTER PACK 4 TAB BTL PO STA (22:03)
[2023-08-13 22:15] LABS: Basophils # (A) 0.1 k/uL (0-0.2); Basophils % (A) 1 %; Eosinophils % (A) 0 %; HCT 52.5 % (39.0-53.0); Lymphocytes # (A) 1.9 k/uL (1.0-4.8); Lymphocytes % (A) 12 %; MCH 31.7 pg (25.0-35.0); MCHC 36.1 g/dL (31.0-37.0); MCV 87.9 fL (80.0-100.0); Mean Platelet Volume 11.3; Monocytes # (A) 0.9 k/uL (0-1.0); Monocytes % (A) 6 %; Neutrophils # (A) 12.8 k/uL (1.3-7.7); Neutrophils % (A) 81 %; Platelet Count 229 k/uL (150-450); RBC 5.97 m/uL (4.30-5.90); RDW 12.1 % (11.5-15.5); WBC 15.9 k/uL (3.8-10.6)
[2023-08-13 22:30] LABS: HGB 18.9 gm/dL (13.0-17.5)
[2023-08-13 22:33] VITALS: BP 115/79; PULSE 120; RESP 18; TEMP 98.1
== END 2023-08-13 22:20 | disposition left against medical advice (07) ==
LOC: EC 18:05 → EEVIPCON 18:05 → EC 22:20
DX: E10.10 Type 1 diabetes mellitus with ketoacidosis without coma (principal); R11.2 Nausea with vomiting, unspecified; F31.9 Bipolar disorder, unspecified; F41.9 Anxiety disorder, unspecified; F12.90 Cannabis use, unspecified, uncomplicated; F17.290 Nicotine dependence, other tobacco product, uncomplicated; Z79.4 Long term (current) use of insulin; Z79.899 Other long term (current) drug therapy; Z88.0 Allergy status to penicillin; Z88.2 Allergy status to sulfonamides; Z88.8 Allergy status to other drugs, medicaments and biological substances; Z91.030 Bee allergy status; Z53.29 Procedure and treatment not carried out because of patient's decision for other reasons
CPT/HCPCS: 96374; 96375 ×2; 96361 ×2; 36415; 93005; 80053; 82009; 83605; 83735; 84100; 85025; 71046; 99285; J2405; J3490; J1885; S0119

== ENCOUNTER → 2023-08-18 | Outpatient (CLI) | payer OTHER ==
[2023-08-18 17:46] LABS: ALT 40 U/L (10-49); AST 25 U/L (14-35); Albumin 4.8 d/dL (3.8-4.9); Albumin/Globulin Ratio 2.09 Ratio (1.60-3.17); Alkaline Phosphatase 126 U/L (41-126); Blood Urea Nitrogen 11.1 mg/dL (9.0-27.0); Calcium 10.1 mg/dL (8.7-10.3); Carbon Dioxide 30.6 mmol/L (21.6-31.8); Chloride 94 mmol/L (96-109); Chol/HDL Ratio 3.44 Ratio; Globulin 2.3 d/dL (1.6-3.3); Glucose 211 mg/dL (70-110); LDL Cholesterol,Calculated 82.5 mg/dL (0.0-131.0); Potassium 4.3 mmol/L (3.5-5.5); Sodium 137 mmol/L (135-145); Total Protein 7.1 d/dL (6.2-8.2)
[2023-08-18 21:59] LABS: C-Peptide <0.02 ng/mL (0.81-3.85)
== END | disposition home or self-care (01) ==
LOC: LABWHC1 09:47
PROVIDERS: ATTEND Internal Medicine
DX: E10.65 Type 1 diabetes mellitus with hyperglycemia (principal)
CPT/HCPCS: 36415; 80053; 80061; 83036; 84681

== ENCOUNTER 2023-08-30 20:26 | Inpatient (IN) | payer OTHER ==
[2023-08-30 20:36] LABS: Glucose,Whole Blood >600 mg/dL (70-110)
[2023-08-30 20:41] VITALS: RESP 18; TEMP 98.5
[2023-08-30] MEDS ORDERED: INSULIN REGULAR 100 UNIT/ML VIAL (IV) IV ONE (20:43)
[2023-08-30] MEDS ORDERED: SODIUM CHLORIDE 0.9% 1,000 ML IV ONE (20:47)
[2023-08-30 21:08] LABS: Basophils % (A) 0 %; Eosinophils # (A) 0.1 k/uL (0-0.7); Eosinophils % (A) 1 %; HCT 44.5 % (39.0-53.0); Lymphocytes # (A) 2.2 k/uL (1.0-4.8); Lymphocytes % (A) 25 %; MCH 31.1 pg (25.0-35.0); MCHC 33.1 g/dL (31.0-37.0); Mean Platelet Volume 9.1; Monocytes # (A) 0.3 k/uL (0-1.0); Monocytes % (A) 4 %; Neutrophils # (A) 6.2 k/uL (1.3-7.7); Neutrophils % (A) 69 %; Platelet Count 197 k/uL (150-450); RBC 4.73 m/uL (4.30-5.90); RDW 12.7 % (11.5-15.5)
[2023-08-30 21:18] LABS: ALT 29 U/L (4-49); AST 28 U/L (17-59); African American GFR (CKD) >90 (>60 ml/min/1.73 sqM); Albumin 4.1 g/dL (3.5-5.0); Alkaline Phosphatase 196 U/L (38-126); Anion Gap 21 mmol/L; Blood Urea Nitrogen 16 mg/dL (9-20); Calcium 9.1 mg/dL (8.4-10.2); Carbon Dioxide 16 mmol/L (22-30); Chloride 92 mmol/L (98-107); HGB 14.7 gm/dL (13.0-17.5); MCV 94.1 fL (80.0-100.0); Non-African American GFR(CKD) >90 (>60 ml/min/1.73 sqM); Potassium 4.9 mmol/L (3.5-5.1); Sodium 129 mmol/L (137-145); Total Bilirubin 1.3 mg/dL (0.2-1.3); Total Protein 6.4 g/dL (6.3-8.2)
[2023-08-30 21:21] LABS: Appearance,Urine Clear (Clear); Bilirubin,Urine Negative (Negative); Blood,Urine Negative (Negative); Color,Urine Colorless; Glucose,Urine (UA) 4+ (Negative); Leukocyte Esterase,Urine Negative (Negative); Nitrite,Urine Negative (Negative); PH, Urine 5.5 (5.0-8.0); Protein,Urine Negative (Negative); Specific Gravity,Urine 1.022 (1.001-1.035); Urobilinogen,Urine <2.0 mg/dL (<2.0)
[2023-08-30 21:33] LABS: Ketones,Urine 3+ (Negative)
[2023-08-30 21:41] LABS: Glucose 709 mg/dL (74-99)
[2023-08-30 21:58] LABS: Glucose,Whole Blood 510 mg/dL (70-110)
[2023-08-30] MEDS ORDERED: SODIUM CHLORIDE 0.9% 1,000 ML IV SCH (22:00)
[2023-08-30] MEDS ORDERED: INSULIN REGULAR 100 UNIT in SODIUM CHLORIDE 0.9% 100 ML IV SCH (22:00)
[2023-08-30] MEDS ORDERED: SODIUM CHLORIDE 0.9% 1,000 ML IV STA (22:13)
--- NOTE | 2023-08-30 22:24 | ED ---
General Adult HPI - General Chief complaint: Recheck/Abnormal Lab/Rx Stated complaint: High blood sugar Time Seen by Provider: 08/30/23 20:34 Source: patient, EMS Mode of arrival: EMS - History of Present Illness Initial comments: 28-year-old male with history of type 1 diabetes presenting with chief complaint of high blood sugar. She tells me that he has been having difficulties with his insulin dosing and states that his pump malfunction 2 days ago. He admits to generalized weakness and nausea. He denies vomiting, abdominal pain, chest pain, difficulty breathing, palpitations, numbness, tingling. - Related Data Home Medications Medication Instructions Recorded Confirmed INSULIN ASPART (NovoLOG) [NovoLOG See Protocol SQ ACHS PRN 04/03/23 08/30/23 (formulary)] Insulin Detemir (Levemir) [Levemir] 20 unit SQ HS 08/13/23 08/30/23 Paliperidone [Paliperidone ER] 3 mg PO DAILY 08/13/23 08/30/23 Allergies Allergy/AdvReac Type Severity Reaction Status Date / Time amoxicillin Allergy Anaphylaxis Verified 08/30/23 22:51 bee venom protein (honey bee) Allergy Rash/Hives Verified 08/30/23 22:51 Penicillins Allergy Anaphylaxis Verified 08/30/23 22:51 risperidone [From Risperdal] Allergy Anaphylaxis Verified 08/30/23 22:51 Sulfa (Sulfonamide Allergy Anaphylaxis Verified 08/30/23 22:51 Antibiotics) Review of Systems ROS Statement: Those systems with pertinent positive or pertinent negative responses have been documented in the HPI. ROS Other: All systems not noted in ROS Statement are negative. Past Medical History Past Medical History: Diabetes Mellitus Additional Past Medical History / Comment(s): TBI History of Any Multi-Drug Resistant Organisms: None Reported Past Surgical History: Orthopedic Surgery Additional Past Surgical History / Comment(s): right arm, right hand, skull Past Psychological History: ADD/ADHD, Anxiety, Bipolar Smoking Status: Vaper Past Alcohol Use History: Rare Past Drug Use History: Marijuana General Exam Limitations: no limitations General appearance: alert, in no apparent distress Head exam: Present: atraumatic, normocephalic, normal inspection Eye exam: Present: normal appearance, EOMI Neck exam: Present: normal inspection, full ROM Respiratory exam: Present: normal lung sounds bilaterally. Absent: respiratory distress, wheezes, rales, rhonchi, stridor Cardiovascular Exam: Present: regular rate, normal rhythm, normal heart sounds. Absent: systolic murmur, diastolic murmur, rubs, gallop, clicks Neurological exam: Present: alert, oriented X3 Psychiatric exam: Present: normal affect, normal mood Skin exam: Present: warm, dry, intact, normal color. Absent: rash Course Vital Signs 08/30/23 08/30/23 08/31/23 20:28 22:00 01:00 Temperature 98.5 F Pulse Rate 114 H 110 H 96 Respiratory 18 18 18 Rate Blood Pressure 123/83 117/63 109/78 O2 Sat by Pulse 100 100 100 Oximetry Medical Decision Making - Medical Decision Making Was pt. sent in by a medical professional or institution (JOSE Acosta, NURSE AIDE, urgent c are, hospital, or care home...) When possible be specific @ -No Did you speak to anyone other than the patient for history (EMS, parent, family, police, friend...)? What history was obtained from this source @ -No Did you review nursing and triage notes (agree or disagree)? Why? @ -I reviewed and agree with nursing and triage notes Were old charts reviewed (outside hosp., previous admission, EMS record, old EKG, old radiological studies, urgent care reports/EKG's, care home records)? Report findings @ -No old charts were reviewed Differential Diagnosis (chest pain, altered mental status, abdominal pain women, abdominal pain men, vaginal bleeding, weakness, fever, dyspnea, syncope, headache, dizziness, GI bleed, back pain, seizure, CVA, palpatations, mental health, musculoskeletal)? @ -MDM Differential Weakness: Hypoglycemia, shock, sepsis, hyponatremia, anemia, infection, KS, ETOH, adverse medicine reaction, overdose, stroke. ... This is not meant to be an all- inclusive list EKG interpreted by me (3pts min.). @ -As above X-rays interpreted by me (1pt min.). @ -None done CT interpreted by me (1pt min.). @ -None done U/S interpreted by me (1pt. min.). @ -None done What testing was considered but not performed or refused? (CT, X-rays, U/S, labs)? Why? @ -None What meds were considered but not given or refused? Why? @ -None Did you discuss the management of the patient with other professionals (professionals i.e. Dr., PA, NURSE AIDE, lab, RT, psych nurse, transition social worker, nurse consultant, teacher, corporate ethics officer, bilingual case manager)? Give summary @ -Spoke with Dr. Randall who accepted admission Was smoking cessation discussed for >3mins.? @ -No Was critical care preformed (if so, how long)? @ -No Were there social determinants of health that impacted care today? How? (Homelessness, low income, unemployed, alcoholism, drug addiction, transportation, low edu. Level, literacy, decrease access to med. care, half-way, rehab)? @ -No Was there de-escalation of care discussed even if they declined (Discuss DNR or withdrawal of care, Hospice)? DNR status @ -No What co-morbidities impacted this encounter? (DM, HTN, Smoking, COPD, CAD, Cancer, CVA, ARF, Chemo, Hep., AIDS, mental health diagnosis, sleep apnea, morbid obesity)? @ -Type 1 diabetes Was patient admitted / discharged? Hospital course, mention meds given and route, prescriptions, significant lab abnormalities, going to OR and other pertinent info. @ -28-year-old male history of type 1 diabetes presenting with chief complaint of high blood sugar. Patient has been having difficulties with insulin dosing. He admits to generalized weakness and nausea. Blood glucose 709. 3+ ketones. Acetone positive. Anion gap 21 and carbon dioxide 16. Patient was initially given 10 units of insulin and started on insulin drip. He is given 2 L of normal saline and started on maintenance rate at 200 mL per hour. He'll be admitted for DKA. I discussed the plan with the patient, he is agreeable. I discussed this case with my attending Dr. Armando. Undiagnosed new problem with uncertain prognosis? @ -No Drug Therapy requiring intensive monitoring for toxicity (Heparin, Nitro, Insulin, Cardizem)? @ -No Were any procedures done? @ -No Diagnosis/symptom? @ -DKA Acute, or Chronic, or Acute on Chronic? @ -Acute Uncomplicated (without systemic symptoms) or Complicated (systemic symptoms)? @ -Complicated Side effects of treatment? @ -No Exacerbation, Progression, or Severe Exacerbation? @ -No Poses a threat to life or bodily function? How? (Chest pain, USA, KS, pneumonia, PE, COPD, DKA, ARF, appy, cholecystitis, CVA, Diverticulitis, Homicidal, Suicidal, threat to staff... and all critical care pts) @ -yes - Lab Data Result diagrams: 08/30/23 20:51 08/30/23 23:51 Lab Results 08/30/23 08/30/23 08/30/23 Range/Units 20:34 20:51 20:51 WBC 9.0 (3.8-10.6) k/uL RBC 4.73 (4.30-5.90) m/uL Hgb 14.7 D (13.0-17.5) gm/dL Hct 44.5 (39.0-53.0) % MCV 94.1 D (80.0-100.0) fL MCH 31.1 (25.0-35.0) pg MCHC 33.1 (31.0-37.0) g/dL RDW 12.7 (11.5-15.5) % Plt Count 197 (150-450) k/uL MPV 9.1 Neutrophils % 69 % Lymphocytes % 25 % Monocytes % 4 % Eosinophils % 1 % Basophils % 0 % Neutrophils # 6.2 (1.3-7.7) k/uL Lymphocytes # 2.2 (1.0-4.8) k/uL Monocytes # 0.3 (0-1.0) k/uL Eosinophils # 0.1 (0-0.7) k/uL Basophils # 0.0 (0-0.2) k/uL Sodium (137-145) mmol/L Potassium (3.5-5.1) mmol/L Chloride (98-107) mmol/L Carbon Dioxide (22-30) mmol/L Anion Gap mmol/L BUN (9-20) mg/dL Creatinine (0.66-1.25) mg/dL Est GFR (CKD-EPI)AfAm (>60 ml/min/1.73 sqM) Est GFR (CKD-EPI)NonAf (>60 ml/min/1.73 sqM) Glucose (74-99) mg/dL POC Glucose (mg/dL) >600 H (70-110) mg/dL POC Glu [employer]ize Machine Operator ID Sidra Boyer Plasma Lactic Acid Flaco (0.7-2.0) mmol/L Calcium (8.4-10.2) mg/dL Total Bilirubin (0.2-1.3) mg/dL AST (17-59) U/L ALT (4-49) U/L Alkaline Phosphatase (38-126) U/L Total Protein (6.3-8.2) g/dL Albumin (3.5-5.0) g/dL Urine Color Colorless Urine Appearance Clear (Clear) Urine pH 5.5 (5.0-8.0) Ur Specific [place] 1.022 (1.001-1.035) Urine Protein Negative (Negative) Urine Glucose (UA) 4+ H (Negative) Urine Ketones 3+ H (Negative) Urine Blood Negative (Negative) Urine Nitrite Negative (Negative) Urine Bilirubin Negative (Negative) Urine Urobilinogen <2.0 (<2.0) mg/dL Ur Leukocyte Esterase Negative (Negative) Acetone, Qual (Negative) 08/30/23 08/30/23 08/30/23 Range/Units 20:51 20:51 21:56 WBC (3.8-10.6) k/uL RBC (4.30-5.90) m/uL Hgb (13.0-17.5) gm/dL Hct (39.0-53.0) % MCV (80.0-100.0) fL MCH (25.0-35.0) pg MCHC (31.0-37.0) g/dL RDW (11.5-15.5) % Plt Count (150-450) k/uL MPV Neutrophils % % Lymphocytes % % Monocytes % % Eosinophils % % Basophils % % Neutrophils # (1.3-7.7) k/uL Lymphocytes # (1.0-4.8) k/uL Monocytes # (0-1.0) k/uL Eosinophils # (0-0.7) k/uL Basophils # (0-0.2) k/uL Sodium 129 L (137-145) mmol/L Potassium 4.9 (3.5-5.1) mmol/L Chloride 92 L (98-107) mmol/L Carbon Dioxide 16 L (22-30) mmol/L Anion Gap 21 mmol/L BUN 16 (9-20) mg/dL Creatinine 0.43 L (0.66-1.25) mg/dL Est GFR (CKD-EPI)AfAm >90 (>60 ml/min/1.73 sqM) Est GFR (CKD-EPI)NonAf >90 (>60 ml/min/1.73 sqM) Glucose 709 H* (74-99) mg/dL POC Glucose (mg/dL) 510 H (70-110) mg/dL POC Glu Alodize Machine Operator ID Angle Méndez Plasma Lactic Acid Flaco 1.6 (0.7-2.0) mmol/L Calcium 9.1 (8.4-10.2) mg/dL Total Bilirubin 1.3 (0.2-1.3) mg/dL AST 28 (17-59) U/L ALT 29 (4-49) U/L Alkaline Phosphatase 196 H (38-126) U/L Total Protein 6.4 (6.3-8.2) g/dL Albumin 4.1 (3.5-5.0) g/dL Urine Color Urine Appearance (Clear) Urine pH (5.0-8.0) Ur Specific [place] (1.001-1.035) Urine Protein (Negative) Urine Glucose (UA) (Negative) Urine Ketones (Negative) Urine Blood (Negative) Urine Nitrite (Negative) Urine Bilirubin (Negative) Urine Urobilinogen (<2.0) mg/dL Ur Leukocyte Esterase (Negative) Acetone, Qual Positive (Negative) Disposition Clinical Impression: Diabetic ketoacidosis Disposition: ADMITTED IP TO THIS [facility] Time of Disposition: 22:24
[2023-08-30] MEDS ORDERED: NALOXONE 0.4 MG/ML 1 ML VIAL IV PRN (22:48)
[2023-08-30] MEDS ORDERED: ONDANSETRON 4 MG/2 ML VIAL IVP PRN (22:48)
[2023-08-30 23:03] LABS: Glucose,Whole Blood 308 mg/dL (70-110)
[2023-08-31 00:04] LABS: Glucose,Whole Blood 206 mg/dL (70-110)
[2023-08-31 00:23] LABS: African American GFR (CKD) >90 (>60 ml/min/1.73 sqM); Anion Gap 17 mmol/L; Blood Urea Nitrogen 12 mg/dL (9-20); Carbon Dioxide 17 mmol/L (22-30); Chloride 102 mmol/L (98-107); Glucose 215 mg/dL (74-99); Non-African American GFR(CKD) >90 (>60 ml/min/1.73 sqM); Potassium 3.7 mmol/L (3.5-5.1); Sodium 136 mmol/L (137-145)
[2023-08-31 01:05] LABS: Glucose,Whole Blood 97 mg/dL (70-110)
[2023-08-31] MEDS ORDERED: DEXTROSE 50% SYRINGE 50 ML IVP PRN ×2 (01:14)
[2023-08-31] MEDS ORDERED: Potassium Replacement Protocol 1 EACH MISC MISCELLANE PRN (01:14)
[2023-08-31] MEDS ORDERED: Magnesium Replacement Protocol 1 EACH MISC MISCELLANE PRN (01:14)
[2023-08-31] MEDS ORDERED: D5-0.45% NACL WITH KCL 20MEQ/L 1,000 ML IV SCH (01:15)
[2023-08-31 01:18] VITALS: BP 109/78; PULSE 96
--- NOTE | 2023-08-31 01:40 | P.HPIM ---
History of Present Illness H&P Date: 08/30/23 Chief Complaint: hyperglycemia 28 year old male with DM patient uses insulin, however having difficluties with dosing resulting in large swings in his blood sugar, and due to couple low readings recently he was avoiding using his insulin, which resulted today in a high reading at home, he was concerned that he might end up in DKA, decided to come in for evaluation he denies any fever, chills, cough, sore throat, chest pain , trouble breathing , nausea , vomiting, abd pain , changes in urinary or bowel habits. admits to smoking, occasional marijuana and alcohol review of systems Pertinent positives as noted in HPI. All other systems were reviewed and are negative on exam Constitutional: No acute distress, conversant, pleasant Eyes: Anicteric sclerae, moist conjunctiva, Pupils equal round reactive to light ENMT: NC/AT Oropharynx clear, no erythema, or exudates Neck: Supple, no masses, or JVD No carotid bruits No thyromegaly Lungs: Clear to auscultation Clear to percussion Normal respiratory effort, no accessory muscle use Cardiovascular: Heart regular in rate and rhythm, No murmurs, gallops, or rubs No peripheral edema Abdominal: Soft Nontender, no guarding, rebound or rigidity Abdomen moving with respiration Normoactive bowel sounds No hepatomegaly, No splenomegaly No palpable mass No abdominal wall hernia noted Skin: Normal temperature, tone, texture, turgor No induration No subcutaneous nodules No rash, lesions No ulcers Extremities: No digital cyanosis No clubbing Pedal pulses intact and symmetrical Radial pulses intact and symmetrical No calf tenderness Psychiatric: Alert and oriented to person, place and time Appropriate affect fair judgement Neuro Muscles Strength 5/5 in all 4 extremities Sensation to light touch grossly present throughout Cranial nerves II-XII grossly intact Lymphatics: no palpable cervical or supraclavicular lymph nodes Past Medical History Past Medical History: Diabetes Mellitus Additional Past Medical History / Comment(s): TBI History of Any Multi-Drug Resistant Organisms: None Reported Past Surgical History: Orthopedic Surgery Additional Past Surgical History / Comment(s): right arm, right hand, skull Past Psychological History: ADD/ADHD, Anxiety, Bipolar Smoking Status: Vaper Past Alcohol Use History: Rare Past Drug Use History: Marijuana Medications and Allergies Home Medications Medication Instructions Recorded Confirmed Type INSULIN ASPART (NovoLOG) [NovoLOG See Protocol SQ ACHS PRN 04/03/23 08/30/23 History (formulary)] Insulin Detemir (Levemir) [Levemir] 20 unit SQ HS 08/13/23 08/30/23 History Paliperidone [Paliperidone ER] 3 mg PO DAILY 08/13/23 08/30/23 History Allergies Allergy/AdvReac Type Severity Reaction Status Date / Time amoxicillin Allergy Anaphylaxis Verified 08/30/23 22:51 bee venom protein (honey bee) Allergy Rash/Hives Verified 08/30/23 22:51 Penicillins Allergy Anaphylaxis Verified 08/30/23 22:51 risperidone [From Risperdal] Allergy Anaphylaxis Verified 08/30/23 22:51 Sulfa (Sulfonamide Allergy Anaphylaxis Verified 08/30/23 22:51 Antibiotics) Physical Exam Vitals: Vital Signs Temp Pulse Resp BP Pulse Ox 08/31/23 01:00 96 18 109/78 100 08/30/23 22:00 110 H 18 117/63 100 08/30/23 20:28 98.5 F 114 H 18 123/83 100 Intake and Output 08/30/23 08/30/23 08/31/23 14:59 22:59 06:59 Intake Total 16.211 Balance 16.211 Intake: Intake, IV Titration 16.211 Amount Insulin Regular 100 unit 16.211 In Sodium Chloride 0.9% 100 ml @ 0.1 UNITS/KG/HR 4.994 mls/hr IV .[id number] [facility] Rx#:[id number] Other: Weight 49.442 kg Results CBC & Chem 7: 08/30/23 20:51 08/30/23 23:51 Labs: Abnormal Lab Results - Last 24 Hours (Table) 08/30/23 08/30/23 08/30/23 Range/Units 20:34 20:51 20:51 Sodium 129 L (137-145) mmol/L Chloride 92 L (98-107) mmol/L Carbon Dioxide 16 L (22-30) mmol/L Creatinine 0.43 L (0.66-1.25) mg/dL Glucose 709 H* (74-99) mg/dL POC Glucose (mg/dL) >600 H (70-110) mg/dL Phosphorus (2.5-4.5) mg/dL Alkaline Phosphatase 196 H (38-126) U/L Urine Glucose (UA) 4+ H (Negative) Urine Ketones 3+ H (Negative) 08/30/23 08/30/23 08/30/23 Range/Units 21:56 23:02 23:51 Sodium (137-145) mmol/L Chloride (98-107) mmol/L Carbon Dioxide (22-30) mmol/L Creatinine (0.66-1.25) mg/dL Glucose (74-99) mg/dL POC Glucose (mg/dL) 510 H 308 H (70-110) mg/dL Phosphorus 2.4 L (2.5-4.5) mg/dL Alkaline Phosphatase (38-126) U/L Urine Glucose (UA) (Negative) Urine Ketones (Negative) 08/30/23 08/31/23 Range/Units 23:51 00:03 Sodium 136 L (137-145) mmol/L Chloride (98-107) mmol/L Carbon Dioxide 17 L (22-30) mmol/L Creatinine 0.36 L (0.66-1.25) mg/dL Glucose 215 H (74-99) mg/dL POC Glucose (mg/dL) 206 H (70-110) mg/dL Phosphorus (2.5-4.5) mg/dL Alkaline Phosphatase (38-126) U/L Urine Glucose (UA) (Negative) Urine Ketones (Negative) Assessment and Plan Assessment: 28 year old male having trouble adjusting his insulin dosing , found to be hyperglycemic today and came in due to concerns regarding DKA, I discussed the case with ED doc and I accepted the admission for DKA with anticipated length of stay > 2 midnights DKA due to insulin non compliance blood sugar in the 700 range bicarb 16 AGAP 21 no acetone available urine ketones positive initiated on DKA pathway NPO IVF hydration with normal saline , received 2 L boluses , then 200 cc per hour Insulin drip monitor electrolytes q4 hrs blood sugar q1hr switch to D5 0.45 if blood sugar <300 UA no evidence of infection WBC 9 unremarkable Hgb 14.7 pseudohyponatremia secondary to hyperglycemia Na 129 K 4.9 continue to monitor electrolytes full code DVT PPX heparin sc tid
--- NOTE | 2023-08-31 07:47 | P.DS ---
Providers Date of admission: 08/30/23 22:22 Expected date of discharge: 08/31/23 Attending physician: Marlon Hathaway MD Primary care physician: Stated None Hospital Course: Patient left AMA without being seen in the morning. Patient Condition at Discharge: Undetermined Plan - Discharge Summary New Discharge Prescriptions: No Action INSULIN ASPART (NovoLOG) [NovoLOG (formulary)] See Protocol SQ ACHS PRN PRN Reason: Blood Sugar - High Paliperidone [Paliperidone ER] 3 mg PO DAILY Insulin Detemir (Levemir) [Levemir] 20 unit SQ HS Discharge Medication List INSULIN ASPART (NovoLOG) [NovoLOG (formulary)] See Protocol SQ ACHS PRN 04/03/23 [History] Insulin Detemir (Levemir) [Levemir] 20 unit SQ HS 08/13/23 [History] Paliperidone [Paliperidone ER] 3 mg PO DAILY 08/13/23 [History] Follow up Appointment(s)/Referral(s): None,Stated [Primary Care Provider] - 1-2 days Discharge Disposition: LEFT AGAINST MEDICAL ADVICE
--- NOTE | 2023-09-08 05:53 | CDI ---
Documentation Clarification Form Date: 09/08/2023 From: Sarahy Christie Admit Date: 08/30/2023 10:22:00 PM Patient Name: Oswald Joseph Visit Number: [id number] Discharge Date: 08/31/2023 01:34:00 AM ATTENTION: The Clinical Documentation Specialists (CDI) and [facility] Coding Staff appreciate your assistance in clarifying documentation. Please respond to the clarification below the line at the bottom and electronically sign. The CDI & [facility] Coding staff will review the response and follow-up if needed. Please note: Queries are made part of the Legal Health Record. If you have any questions, please contact the author of this message via ITS. Dr. Marlon Hathaway, DKA due to insulin noncompliance is documented in the H&P and patient is noted to have Insulin pump in H&P. Please clarify if there is a relationship between the DKA and Insulin pump malfunction or patient having trouble adjusting his Insulin dosing. History/Risk Factors: T1DM, ADHD Clinical Indicators: Glucose 709, Acetone, Qual Positive Left AMA Treatment: Insulin Human Regular 10 Units IV stat, Insulin Human Regular 100 Units IV, IV fluids, monitor labs Please clarify the relationship, if any, which is clinically appropriate for this patient: [ ] DKA due to Insulin pump malfunction [ ] DKA due to patient adjusting Insulin dosing [ ] DKA not due to Insulin pump malfunction [ ] DKA not due to patient adjusting Insulin dosing [ ] Other explanation of clinical findings (please specify) [ ] Unable to determine (no explanation for clinical findings) DKA due to patient stopping insulin pump due to recurrent episodes of hypoglycemia MTDD
== END 2023-08-31 01:34 | disposition left against medical advice (07) | DRG 420 ==
LOC: EC 20:26 → 3SCARD 22:22
PROVIDERS: ADMIT Internal Medicine; ATTEND Internal Medicine
DX: E10.10 Type 1 diabetes mellitus with ketoacidosis without coma (principal); F31.9 Bipolar disorder, unspecified; Z79.4 Long term (current) use of insulin; F90.9 Attention-deficit hyperactivity disorder, unspecified type; T38.3X6A Underdosing of insulin and oral hypoglycemic [antidiabetic] drugs, initial encounter; F41.9 Anxiety disorder, unspecified; Z91.138 Patient's unintentional underdosing of medication regimen for other reason; Z53.21 Procedure and treatment not carried out due to patient leaving prior to being seen by health care provider; Z79.899 Other long term (current) drug therapy; Z87.820 Personal history of traumatic brain injury; Z96.41 Presence of insulin pump (external) (internal); Z88.0 Allergy status to penicillin; Z88.2 Allergy status to sulfonamides; Z88.8 Allergy status to other drugs, medicaments and biological substances
CPT/HCPCS: 36415; 80051; 80053; 81003; 82009; 82565; 82947; 83605; 84100; 84520; 85025; 96360; 96361; 99284